=== PATIENT | male | born 1935 | race Caucasian/White ===

== ENCOUNTER 2020-11-11 03:16 | Emergency (ER) | payer MEDICARE ==
[~2020-11-11] VITALS: Ht 170.2 cm; Wt 90.0 kg
--- NOTE | 2020-11-11 03:23 | EKG ---
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
--- NOTE | 2020-11-11 03:23 | PHYS DOC ---
Past History Past Medical History: Asthma, Cancer (Prostate), Hypertension Additional Past Medical Histor: CLL (DEQUAN NUNEZ DO) Past Surgical History: Appendectomy, Pacemaker Additional Past Surgical Histo: Prostate (DEQUAN NUNEZ DO) Smoking: Non-smoker Alcohol Use: None Drug Use: None (DEQUAN NUNEZ DO) General Adult EDM: Chief Complaint: Abdominal pain HPI: HPI: 85-year-old male presents with report of upper abdominal discomfort that started in left upper quadrant and has since moved to epigastrium. Denies any nausea or vomiting. Denies any fever or chills. Reports symptoms started at approxim ately 1999 last night. Denies any diaphoresis. Patient concerned that it might be his heart. (DEQUAN NUNEZ DO) Review of Systems: Review of Systems: Constitutional: Denies fever or chills Eyes: Denies redness or eye pain HENT: Denies nasal congestion or sore throat Respiratory: Denies cough or shortness of breath Cardiovascular: Reports chest pain; denies palpitations GI: Reports abdominal pain; denies nausea or vomiting : Denies dysuria or hematuria Musculoskeletal: Denies back pain or joint pain Integument: Denies rash or skin lesions Neurologic: Denies headache, focal weakness or sensory changes Complete systems were reviewed and found to be within normal limits, except as documented in this note. (DEQUAN NUNEZ DO) Physical Exam: PE: Constitutional: Well developed, well nourished, no acute distress, non-toxic appearance HENT: Normocephalic, atraumatic Eyes: Conjunctiva normal, no discharge Neck: Normal range of motion, no tenderness, supple Lungs & Thorax: No respiratory distress, equal chest rise and fall Abdomen: Soft, left upper quadrant and epigastrium tenderness Skin: Warm, dry, no erythema, no rash Back: No tenderness, no CVA tenderness Extremities: No tenderness, ROM intact, no edema Neurologic: Alert and oriented X 3, normal motor function, normal sensory f unction, no focal deficits noted Psychologic: Affect anxious, judgment normal (DEQUAN NUNEZ DO) EKG: EKG: @0317 Afib at 87bpm, LAFB, NO ST elevation, QRS 82ms, QT/QTc 426/513ms (DEQUAN NUNEZ DO) Radiology/Procedures: Radiology/Procedures: PROCEDURE: CT CHEST ABD PELVIS W/CONTRAST PQRS Compliance Statement: One or more of the following individualized dose reduction techniques were utilized for this examination: 1. Automated exposure control 2. Adjustment of the mA and/or kV according to patient size 3. Use of iterative reconstruction technique CT CHEST+ABD+PELVIS W Clinical Indication: Reason: lower chest and upper abdominal pain Comparison: None. Technique: Helical CT imaging of the chest, abdomen and pelvis is performed after 75 cc of Omnipaque 300 IV contrast. Oral contrast not administered. Findings: The thyroid is symmetric. There is left chest dual-chamber pacer. There are subcentimeter mediastinal lymph nodes. There is a partially calcified 1.6 cm subcarinal lymph node. There is coronary artery disease. Cardiac size is normal, no pericardial effusion. There is no central pulmonary embolus. Calcific aortic valve stenosis. There is no thoracic aortic dissection. The great vessels are normal caliber. There is no pleural effusion. Central airways are patent. There is discoid atelectasis or scarring in the anterior right upper lobe. There are several about 1 cm in size groundglass nodules bilaterally, for example 2 are seen in the right middle lobe, image 48 and 50. There are linear consolidations and nodular opacities in the bilateral basilar lower lobes. There are bilateral inferior partially calcified pleural plaques. There is a 7 mm possible hemangioma in segment 7 of the liver. Tiny cyst or meningioma is seen in segment 4A of the liver. Small hypodensities are seen in t he spleen, nonspecific. There is cholelithiasis. Minimal induration along the gallbladder wall is seen. The pancreas, adrenal glands, and abdominal aorta caliber are normal. There is no hydronephrosis. 7.3 cm partially exophytic cyst of the right kidney does not require follow-up. There is a 1 cm exophytic lesion at the lower pole of the left kidney that is increased in density and is not definitely a cyst. There is ventral hernia mesh. The stomach is unremarkable. There is no dilated small bowel. There is a short segment of the mid transverse colon that is decompressed with wall prominence which may be due to peristalsis. There is no surrounding inflammation. Appendix is not seen, no secondary signs of appendicitis. There are subcentimeter gastrohepatic lymph nodes. No mesenteric adenopathy. Urinary bladder is not well distended accentuating the wall thickness. Prostatectomy. No pelvic free fluid. There is grade 1 anterolisthesis of L4 and L5. There is multilevel vacuum disc phenomenon of the lumbar spine. There is mild right convexity lumbar scoliosis. Thoracic spine alignment is maintained. IMPRESSION: 1. There are nodular and linear opacities in the periphery of the bilateral basilar lower lobes. There are several subcentimeter groundglass nodules sc attered in the upper lungs. Findings are likely infectious/inflammatory including atypical/viral pneumonitis. 2. Cholelithiasis. There is minimal pericholecystic induration. Suggest right upper quadrant ultrasound. 3. There is a small exophytic lesion at the lower pole of the left kidney that is not definitely a cyst. Recommend outpatient renal ultrasound. Electronically signed by: Barrett Bean MD (11/11/2020 4:50 AM) [facility] (DEQUAN NUNEZ DO) Heart Score: HEART Score for Chest Pain: HEART Score for Chest Pain Response (Comments) Value History Slighlty/Non-Suspicious 0 ECG Nonspecific Repolarizatio 1 Age > 65 2 Risk Factors 1 or 2 Risk Factors 1 Troponin < Normal Limit 0 Total 4 Risk Factors: Risk Factors: DM, Current or recent (<one month) smoker, HTN, HLP, family hist ory of CAD, obesity. Risk Scores: Score 0 - 3: 2.5% MACE over next 6 weeks - Discharge Home Score 4 - 6: 20.3% MACE over next 6 weeks - Admit for Clinical Observation Score 7 - 10: 72.7% MACE over next 6 weeks - Early Invasive Strategies (DEQUAN NUNEZ DO) Course & Med Decision Making: Course & Med Decision Making Pertinent Labs and Imaging studies reviewed. (See chart for details) Elderly patient presents with left upper quadrant abdominal pain with movement to epigastrium. IV fluid hydration provided. EKG obtained. Labs obtained and posted to chart. LFTs/lipase WNL. WBC slightly elevated. Troponin WNL. CT abdomen/pelvis obtained with findings of cholelithiasis with possible gall bladder wall thickening. US ordered and pending. CT chest with signs of atypical pneumonitis. Cannot exclude COVID-19, Empiric antibiotics started. Lactic acid pending. Blood cultures ordered. COVID testing will be obtained pending US results. Pacemaker interrogated: Pacemaker appears to be working well. Metronic rep reports on 10/28 & 1/14 there were two small runs of Vtach. Sign out given to Dr. Hernandez for further evaluation and final disposition. Discussed current findings and plan with patient, who acknowledges understanding and agreement. (DEQUAN NUNEZ DO) Course & Med Decision Making Assumed care of patient from Dr. Nunez. At checkout a ultrasound was pending. Ultrasound does not show acute cholecystitis. Patient is feeling significantly better. He will be swabbed for novel coronavirus 19. Patient will be discharged on steroids and was given a report of his CT scan and his pacemaker interrogation. He will call his glass inserter about his interrogation and see when they would like him to follow-up in clinic. Patient will return to the emergency room if pain returns, he develops shortness of breath, he develops palpitations, or he has other concerns. Patient's test results and vitals while in the ED were fully reviewed and discussed with the patient. Patient is stable and at this time does not need admission to the hospital. We have discussed strict return precautions and the importance of following up with their Primary Care Physician. Patient stated understanding and was given an opportunity to ask any questions. Patient is in agreement with plan. (DANISH HERNANDEZ MD) Dragon Disclaimer: Dragon Disclaimer: This electronic medical record was generated, in whole or in part, using a voice recognition dictation system. (DEQUAN NUNEZ DO) Departure Departure: Impression: Primary Impression: Atypical pneumonia Additional Impression: Cholelithiasis Disposition: 01 DC HOME SELF CARE/HOMELESS Condition: STABLE Referrals: PCP,UNKNOWN (PCP) Patient Instructions: Chest Pain (Nonspecific), Pneumonia, Adult Scripts Prednisone (PREDNISONE) 50 Mg Tablet 1 TAB PO DAILY for atypical pneumonia, #5 TAB You received this medication in the emergency room today. You will starting your next dose tomorrow. Prov: DANISH HERNANDEZ MD 11/11/20 Azithromycin (ZITHROMAX) 250 Mg Tablet 1 PKG PO UD for atypical pneumonia, #1 PKG Prov: DANISH HERNANDEZ MD 11/11/20 DEQUAN NUNEZ DO Nov 11, 2020 03:23 DANISH HERNANDEZ MD Nov 11, 2020 08:26
[2020-11-11] MEDS ORDERED: CONTRAST GIVEN. MC PRN (03:45)
[2020-11-11] MEDS ORDERED: IOHEXOL 300 MG/ML 75 ML VIAL. IV ONE (03:45)
[2020-11-11] MEDS ORDERED: FAMOTIDINE 20 MG/2 ML VIAL IVP ONE (03:45)
[2020-11-11] MEDS ORDERED: ASPIRIN 325 MG TABLET PO ONE (03:45)
[2020-11-11 03:57] LABS: BASO % 0 % (0-3); EOS # 0.1 x10^3/uL (0.0-0.7); EOS % 1 % (0-3); HEMATOCRIT 44.7 % (39.0-53.0); HEMOGLOBIN 15.5 g/dL (13.0-17.5); LYMPH # 5.5 x10^3/uL (1.0-4.8); LYMPH % 43 % (24-48); MEAN CORPUSCULAR HEMOGLOBIN 32 pg (25-35); MEAN CORPUSCULAR HGB CONC 35 g/dL (31-37); MEAN CORPUSCULAR VOLUME 94 fL (79-100); MONO # 0.7 x10^3/uL (0.0-1.1); MONO % 6 % (0-9); NEUT # 6.4 x10^3uL (1.8-7.7); NEUT % 50 % (31-73); PLATELET COUNT 194 x10^3/uL (140-400); RED BLOOD COUNT 4.78 x10^6/uL (4.30-5.70); RED CELL DISTRIBUTION WIDTH 14.5 % (11.5-14.5); WHITE BLOOD COUNT 12.8 x10^3/uL (4.0-11.0)
[2020-11-11 04:13] LABS: CALCIUM 8.3 mg/dL (8.5-10.1); CREATININE 1.1 mg/dL (0.7-1.3); GFR 63.9; POTASSIUM 3.6 mmol/L (3.5-5.1)
[2020-11-11 04:26] LABS: ALBUMIN 3.2 g/dL (3.4-5.0); ALBUMIN/GLOBULIN RATIO 1.3 (1.0-1.7); MAGNESIUM 2.1 mg/dL (1.8-2.4); TOTAL BILIRUBIN 0.3 mg/dL (0.2-1.0); TOTAL PROTEIN 5.6 g/dL (6.4-8.2)
--- NOTE | 2020-11-11 04:52 | RAD ---
PQRS Compliance Statement: One or more of the following individualized dose reduction techniques were utilized for this examinat ion: 1. Automated exposure control 2. Adjustment of the mA and/or kV according to patient size 3. Use of iterative reconstruction technique CT CHEST+ABD+PELVIS W Clinical Indication: Reason: lower chest and upper abdominal pain Comparison: None. Technique: Helical CT imaging of the chest, abdomen and pelvis is performed after 75 cc of Omnipaque 300 IV contrast. Oral contrast not administered. Findings: The thyroid is symmetric. There is left chest dual-chamber pacer. There are subcentimeter mediastinal lymph nodes. There is a partially calcified 1.6 cm subcarinal lymph node. There is coronary artery d isease. Cardiac size is normal, no pericardial effusion. There is no central pulmonary embolus. Calci fic aortic valve stenosis. There is no thoracic aortic dissection. The great vessels are normal calib er. There is no pleural effusion. Central airways are patent. There is discoid atelectasis or scarring in the anterior right upper lobe. There are several about 1 cm in size groundglass nodules bilaterally, for example 2 are seen in the right middle lobe, image 48 and 50. There are linear consolidations an d nodular opacities in the bilateral basilar lower lobes. There are bilateral inferior partially calc ified pleural plaques. There is a 7 mm possible hemangioma in segment 7 of the liver. Tiny cyst or meningioma is seen in seg ment 4A of the liver. Small hypodensities are seen in the spleen, nonspecific. There is cholelithiasi s. Minimal induration along the gallbladder wall is seen. The pancreas, adrenal glands, and abdominal aorta caliber are normal. There is no hydronephrosis. 7.3 cm partially exophytic cyst of the right kidney does not require foll ow-up. There is a 1 cm exophytic lesion at the lower pole of the left kidney that is increased in den sity and is not definitely a cyst. There is ventral hernia mesh. The stomach is unremarkable. There is no dilated small bowel. There is a short segment of the mid transverse colon that is decompressed with wall prominence which may be du e to peristalsis. There is no surrounding inflammation. Appendix is not seen, no secondary signs of a ppendicitis. There are subcentimeter gastrohepatic lymph nodes. No mesenteric adenopathy. Urinary bladder is not well distended accentuating the wall thickness. Prostatectomy. No pelvic free fluid. There is grade 1 anterolisthesis of L4 and L5. There is multilevel vacuum disc phenomenon of the lumb ar spine. There is mild right convexity lumbar scoliosis. Thoracic spine alignment is maintained. IMPRESSION: 1. There are nodular and linear opacities in the periphery of the bilateral basilar lower lobes. The re are several subcentimeter groundglass nodules scattered in the upper lungs. Findings are likely in fectious/inflammatory including atypical/viral pneumonitis. 2. Cholelithiasis. There is minimal pericholecystic induration. Suggest right upper quadrant ultraso und. 3. There is a small exophytic lesion at the lower pole of the left kidney that is not definitely a c yst. Recommend outpatient renal ultrasound. Electronically signed by: Barrett Bean MD (11/11/2020 4:50 AM) [facility]
[2020-11-11] MEDS ORDERED: PIPERACILLIN/TAZOBACTAM 4.5 GM in IV NORMAL SALINE 50ML 50 ML IV ONE (05:30)
[2020-11-11] MEDS ORDERED: PIPERACILLIN/TAZOBACTAM 4.5 GM VIAL IV ONE (05:43)
[2020-11-11] MEDS ORDERED: IV NORMAL SALINE 50ML 50 ML ONE (05:43)
[2020-11-11 06:58] VITALS: BP 121/51
--- NOTE | 2020-11-11 08:12 | RAD ---
US ABDOMEN LTD History: Reason: RUQ pain eval for cholecystitis / Spl. Instructions: / History: Comparison: CT November 11, 2020. Technique: Transabdominal ultrasound images are obtained of the right upper quadrant. Findings: Liver is normal in echogenicity. Right hepatic lobe measures 17.5 cm. Portal flow is hepatopedal. Cholelithiasis with gallbladder sludge. No gallbladder wall thickening or pericholecystic fluid. Common bile duct measures 3 mm in diameter. Visualized pancreas not well seen due to overlying bowel gas. The right kidney measures 11.1 x 5.2 x 4.5 cm. No hydronephrosis. Simple right renal cyst measures 7. 5 cm. No follow-up imaging is recommended per consensus recommendations based on imaging criteria. Aorta and IVC not well seen due to overlying bowel gas. IMPRESSION: 1. Cholelithiasis with gallbladder sludge. Electronically signed by: Lobo Lund DO (11/11/2020 8:10 AM) [id number]
[2020-11-11] MEDS ORDERED: PRED50TA PO (08:26)
[2020-11-11] MEDS ORDERED: AZIT250T PO (08:26)
[2020-11-11] MEDS ORDERED: AMOX1TAB58 PO (08:48)
== END 2020-11-11 08:55 | disposition home or self-care (01) ==
LOC: ER 03:16
DX: J18.9 Pneumonia, unspecified organism (principal); K80.20 Calculus of gallbladder without cholecystitis without obstruction; J45.909 Unspecified asthma, uncomplicated; I10 Essential (primary) hypertension; Z20.822 Contact with and (suspected) exposure to COVID-19; Z90.89 Acquired absence of other organs; Z95.0 Presence of cardiac pacemaker
CPT/HCPCS: 36415; 71260; 74177; 76705; 80053; 82553; 83605; 83690; 83735; 83880; 84484; 85025; 85610; 85730; 87040; 93005; 96365; 96375; 99285; C9803; J2543; J3490; Q9967; U0003

== ENCOUNTER 2020-11-19 01:15 | Emergency (ER) | payer MEDICARE ==
[~2020-11-19] VITALS: Ht 170.2 cm; Wt 90.0 kg
[~2020-11-19 01:15] MED LIST: AMOX1TAB58 PO; AZIT250T PO; PRED50TA PO
--- NOTE | 2020-11-19 01:28 | PHYS DOC ---
Past History Past Medical History: Angina, Anxiety, Arthritis, Asthma, CAD, Cancer, Hypertension, Prostatitis Additional Past Medical Histor: CLL,Prostated Cancer- surgery, later radiation Past Surgical History: Appendectomy, Pacemaker Additional Past Surgical Histo: Prostate, pacemaker metronic Smoking: Non-smoker Alcohol Use: None Drug Use: None General Adult HPI: HPI: "..I ve been having this chest pain off and on last few days...but it would not let up tonight...I was here on 11/11.. they said .. I had pneumonia... I did finish my meds today. Or my antibiotics.." Patient is a 85 year old male who presents with above hx and complaints of chest pain. Pain is central. Non-radiating.. Patient states pain is severe at times. Nothing he does makes it better or worse. Patient does have a history of hypertension, asthma,arthritis, prostate cancer, CLL, and conduction dysrhythmia requiring pacemaker placement in 2014. Patient follows at with Dr. Georgette Hurley as a primary. He sees Dr. Arriola cardiology at , and also follows with hematology oncology at . Patient is also followed at [facility] for his CLL. Patient denies any trauma. Patient denies any specific ill contacts. Previous Covid test was negative. Patient has been compliant with his hydrochlorothiazide 25 mg a day and metoprolol 25 mg one half daily and recent course of antibiotics.. He also takes flecainide 50 mg twice daily. Patient is not on any current meds for his CLL and has not required such for some time. Patient denies any previous history of DVTs or pulmonary embolisms. No recent travel. No history immunosuppression. After patient's prostatectomy age 56 eventually had to have radiation because elevated PSA girdle. Hx. on last Metronic interrogation showed runs of V. tach on 10/28 and 10/29. Metronic tonight frequent PVC, short runs VT. Review of Systems: Review of Systems: Constitutional: Denies fever or chills Eyes: Denies change in visual acuity HENT: Denies nasal congestion or sore throat Respiratory: Complains of shortness of breath Cardiovascular: Complains of chest pain GI: Denies abdominal pain, nausea, vomiting, bloody stools or diarrhea : Denies dysuria Musculoskeletal: History of arthritis Integument: Denies rash Neurologic: Denies headache, focal weakness or sensory changes Endocrine: Denies polyuria or polydipsia Lymphatic: Denies swollen glands Psychiatric: History of anxiety Family History: Family History: Noncontributory to presentation Current Medications: Current Meds: See nursing for home meds Allergies: Allergies: Allergies Coded Allergies Type Severity Reaction Last Updated Verified azithromycin Allergy Unknown Rash 11/11/20 Yes Physical Exam: PE: Constitutional: Moderate acute distress, non-toxic appearance. [] HENT: Normocephalic, atraumatic, bilateral external ears normal, oropharynx moist, no oral exudates, nose normal. [] Eyes: PERRLA, EOMI, conjunctiva normal, no discharge. Glasses Neck: Normal range of motion, no tenderness, supple, no stridor. [] Cardiovascular: Irregular heart rate regular rhythm, no murmur, PMI to the left. PVCs per monitor Lungs & Thorax: Bilateral breath sounds equal at apex but some bilateral basilar crackles on auscultation [] Abdomen: Bowel sounds normal, soft, no tenderness, no masses, no pulsatile masses. Obese. Old surgery scars. Radiation tattoo placement Tho pelvic area. Skin: Warm, dry, no erythema, no rash. Poor turgor. Back: No tenderness, no CVA tenderness. [] Extremities: No tenderness, no cyanosis, no clubbing, ROM intact, mild ankle edema. No cording appreciated. Arthritis. Neurologic: Alert and oriented X 3, n moves all extremities on request, and has distal sensory,, no focal deficits noted. [] Psychologic: Affect anxious, judgement normal, mood normal. [] EKG: EKG: My interpretation EKG shows a ventricular rhythm 80 bpm. Is irregular rhythm. Does occasionally have a PVC. There is occasional pacer spike. Left axis. Right bundle branch block. [] Radiology/Procedures: Radiology/Procedures: Reviewed CT on 11/11= Basilar atypical nodules, pneumonitis, gallstones, [][address] [address] IMAGING REPORT Signed PATIENT: GABRIELA QUIROZ LACCOUNT: [id number] : 1935 LOCATION: ER AGE: 85 SEX: M EXAM STATUS: REG ER ORD. PHYSICIAN: YOUNG COFFEY MD REASON: Chest pain PROCEDURE: PORTABLE CHEST 1V AP chest x-ray HISTORY: Chest pain. COMPARISON: CT chest November 11, 2020. FINDINGS: Dual-chamber cardiac pacemaker. Heart size normal. Mediastinal silhouette is normal. Small nodular density at the left lateral lung base corresponding to a 6 mm pulmonary nodule on prior CT imaging. No pneumothorax. No pleural effusions. Bibasilar interstitial infiltrates mildly decreased since the prior CT study. IMPRESSION: Mild improvement of the basilar pulmonary interstitial infiltrates. 6 mm inferior lingula pulmonary nodule again demonstrated as was present on the prior CT study. Attention on follow-up CT imaging in 6 months is advised. Electronically signed by: Anju Roberson MD (11/19/2020 2:27 AM) [facility] DICTATED AND SIGNED BY: ANJU ROBERSON MD DATE: 11/19/20 0225 CC: YOUNG COFFEY MD; PCP,UNKNOWN ~MTH0 0 Heart Score: HEART Score for Chest Pain: HEART Score for Chest Pain Response (Comments) Value History Moderately Suspicious 1 ECG Nonspecific Repolarizatio 1 Age > 65 2 Risk Factors 1 or 2 Risk Factors 1 Troponin < Normal Limit 0 Total 5 Risk Factors: Risk Factors: DM, Current or recent (<one month) smoker, HTN, HLP, family history of CAD, obesity. Risk Scores: Score 0 - 3: 2.5% MACE over next 6 weeks - Discharge Home Score 4 - 6: 20.3% MACE over next 6 weeks - Admit for Clinical Observation Score 7 - 10: 72.7% MACE over next 6 weeks - Early Invasive Strategies Course & Med Decision Making: Course & Med Decision Making Pertinent Labs and Imaging studies reviewed. (See chart for details) Discussed presentation, testing and treatment plan with transfer at patient's request at 0430 hrs. Pt. accepted in transfer to - Dr Magana . Advised no anticoagulation at this time. 0500 hs. Impression: 1. Chest pain 2. Elevated D-dimer 1.59 3. Elevated CRP 17.8 4. CHF-BNP 1685-diastolic dysfunction 5. History of atypical pneumonia 127 recent completed course of antibiotics 6. History of CLL 7. Leukocytosis 19.8 8. Malnutrition albumin 2.8 9.. History of prostate cancer-(status post prostatectomy/and radiation) 10. Dysrhythmia [] Dragon Disclaimer: Dragon Disclaimer: This electronic medical record was generated, in whole or in part, using a voice recognition dictation system. Departure Departure: Referrals: PCP,UNKNOWN (PCP) Evens Disclaimer This chart was dictated in whole or in part using Voice Recognition software in a busy, high-work load, and often noisy Emergency Department environment. It may contain unintended and wholly unrecognized errors or omissions. Dragon Disclaimer This chart was dictated in whole or in part using Voice Recognition software in a busy, high-work load, and often noisy Emergency Department environment. It may contain unintended and wholly unrecognized errors or omissions. YOUNG COFFEY MD Nov 19, 2020 01:28
[2020-11-19] MEDS ORDERED: ASPIRIN CHEWABLE 81 MG TABLET. PO ONE (01:45)
[2020-11-19] MEDS ORDERED: IV RINGERS SOLUTION,LACTATED 1,000 ML IV SCH (01:45)
--- NOTE | 2020-11-19 01:53 | EKG ---
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
[2020-11-19] MEDS ORDERED: NITROGLYCERIN OINT 1 GM PACKET. ONE (02:03)
[2020-11-19] MEDS ORDERED: NITROGLYCERIN OINT 1 GM PACKET. TP ONE (02:15)
[2020-11-19] MEDS ORDERED: MORPHINE SULFATE 2 MG/ML DISP.SYRIN. IV ONE ×4 (02:15→06:00)
[2020-11-19 02:19] LABS: BASO # 0.2 x10^3/uL (0.0-0.2); BASO % 1 % (0-3); EOS # 0.1 x10^3/uL (0.0-0.7); EOS % 1 % (0-3); HEMATOCRIT 42.9 % (39.0-53.0); HEMOGLOBIN 14.6 g/dL (13.0-17.5); LYMPH # 8.6 x10^3/uL (1.0-4.8); LYMPH % 45 % (24-48); MEAN CORPUSCULAR HEMOGLOBIN 32 pg (25-35); MEAN CORPUSCULAR HGB CONC 34 g/dL (31-37); MEAN CORPUSCULAR VOLUME 95 fL (79-100); MONO # 1.2 x10^3/uL (0.0-1.1); MONO % 6 % (0-9); NEUT # 8.9 x10^3uL (1.8-7.7); NEUT % 47 % (31-73); PLATELET COUNT 222 x10^3/uL (140-400); RED BLOOD COUNT 4.52 x10^6/uL (4.30-5.70); RED CELL DISTRIBUTION WIDTH 14.2 % (11.5-14.5)
[2020-11-19 02:28] LABS: CALCIUM 8.1 mg/dL (8.5-10.1); CREATININE 1.5 mg/dL (0.7-1.3); GFR 44.7; POTASSIUM 3.4 mmol/L (3.5-5.1)
--- NOTE | 2020-11-19 02:30 | RAD ---
AP chest x-ray HISTORY: Chest pain. COMPARISON: CT chest November 11, 2020. FINDINGS: Dual-chamber cardiac pacemaker. Heart size normal. Mediastinal silhouette is normal. Small nodular density at the left lateral lung base corresponding to a 6 mm pulmonary nodule on prior CT im aging. No pneumothorax. No pleural effusions. Bibasilar interstitial infiltrates mildly decreased sin ce the prior CT study. IMPRESSION: Mild improvement of the basilar pulmonary interstitial infiltrates. 6 mm inferior lingula pulmonary nodule again demonstrated as was present on the prior CT study. Attention on follow-up CT imaging in 6 months is advised. Electronically signed by: Marco Roberson MD (11/19/2020 2:27 AM) [facility]
[2020-11-19 02:44] LABS: % BANDS 1 % (0-9); % LYMPHS 31 % (24-48); % MONOS 7 % (0-10); % SEGS 61 % (35-66); ALBUMIN 2.8 g/dL (3.4-5.0); C REACTIVE PROTEIN 17.8 mg/L (0-3.3); DIRECT BILIRUBIN 0.1 mg/dL (0.0-0.2); MAGNESIUM 1.9 mg/dL (1.8-2.4); PLT ESTIMATE ADEQUATE (ADEQUATE); TOTAL BILIRUBIN 0.4 mg/dL (0.2-1.0); TOTAL PROTEIN 5.8 g/dL (6.4-8.2)
[2020-11-19] MEDS ORDERED: MORPHINE SULFATE 4 MG/ML DISP.SYRIN. IV ONE (02:45)
[2020-11-19] MEDS ORDERED: cefTRIAXone SODIUM 1 GM VIAL ONE (04:54)
[2020-11-19] MEDS ORDERED: IV NORMAL SALINE 50ML 50 ML ONE (04:54)
[2020-11-19 05:35] VITALS: BP 119/57
[2020-11-19 07:20] LABS: BILIRUBIN,URINE NEG (NEG); CLARITY,URINE CLEAR; COLOR,URINE YELLOW; GLUCOSE,URINE NEG (NEG)
[2020-11-19 07:21] LABS: NITRITE,URINE NEG (NEG); RBC,URINE OCC /HPF (0-2); SQUAMOUS EPITHELIAL CELL,UR FEW /LPF; UROBILINOGEN,URINE 0.2 mg/dL (0.2 mg/dL); YEAST,URINE PRESENT /HPF
[2020-11-19 07:22] LABS: BACTERIA,URINE 0 /HPF (0-FEW)
[2020-11-19] MEDS ORDERED: APIXABAN 2.5 MG TABLET PO SCH (09:00)
== END 2020-11-19 05:45 | disposition short-term general hospital (02) ==
LOC: ER 01:15
DX: R07.89 Other chest pain (principal); I11.0 Hypertensive heart disease with heart failure; I50.30 Unspecified diastolic (congestive) heart failure; R79.82 Elevated C-reactive protein (CRP); R79.89 Other specified abnormal findings of blood chemistry; Z87.01 Personal history of pneumonia (recurrent); D72.829 Elevated white blood cell count, unspecified; E46 Unspecified protein-calorie malnutrition; Z68.1 Body mass index [BMI] 19.9 or less, adult; Z85.46 Personal history of malignant neoplasm of prostate; I49.9 Cardiac arrhythmia, unspecified; Z85.6 Personal history of leukemia; Z90.89 Acquired absence of other organs; Z95.0 Presence of cardiac pacemaker; Z88.1 Allergy status to other antibiotic agents
CPT/HCPCS: 36415; 71045; 80048; 80076; 81001; 82550; 83690; 83735; 83880; 84443; 84484; 85007; 85025; 85379; 85610; 85730; 86140; 87040; 93005; 96361; 96365; 96375; 96376; 99285; J0696; J2060; J2270; J7120

== ENCOUNTER 2021-08-11 13:56 | Inpatient (IN) | payer MEDICARE ==
[~2021-08-11] VITALS: Ht 170.2 cm; Wt 95.1 kg
[2021-08-11] MEDS ORDERED: ONDANSETRON PF 4 MG/2 ML VIAL. ONE (14:14)
[2021-08-11] MEDS ORDERED: NITROGLYCERIN SUBLINGUAL 0.4 MG BOTTLE OF 25. SL PRN (14:15)
[2021-08-11] MEDS ORDERED: ASPIRIN CHEWABLE 81 MG TABLET. PO ONE (14:15)
--- NOTE | 2021-08-11 14:22 | EKG ---
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
[2021-08-11] MEDS ORDERED: LIDO:MAALOX 1:1 20 ML SINGLE DOSE. PO ONE (14:30)
[2021-08-11] MEDS ORDERED: IOHEXOL 350 MG/ML 100 ML VIAL. IV ONE (14:45)
[2021-08-11 14:48] LABS: BASO # 0.1 x10^3/uL (0.0-0.2); BASO % 1 % (0-3); EOS # 0.1 x10^3/uL (0.0-0.7); EOS % 1 % (0-3); HEMATOCRIT 48.4 % (39.0-53.0); HEMOGLOBIN 16.5 g/dL (13.0-17.5); LYMPH # 7.2 x10^3/uL (1.0-4.8); LYMPH % 47 % (24-48); MEAN CORPUSCULAR HEMOGLOBIN 32 pg (25-35); MEAN CORPUSCULAR HGB CONC 34 g/dL (31-37); MEAN CORPUSCULAR VOLUME 94 fL (79-100); MONO # 1.2 x10^3/uL (0.0-1.1); MONO % 8 % (0-9); NEUT # 6.7 x10^3uL (1.8-7.7); NEUT % 44 % (31-73); PLATELET COUNT 220 x10^3/uL (140-400); RED BLOOD COUNT 5.16 x10^6/uL (4.30-5.70); WHITE BLOOD COUNT 15.3 x10^3/uL (4.0-11.0)
--- NOTE | 2021-08-11 14:48 | EKG ---
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
[2021-08-11] MEDS ORDERED: MORPHINE SULFATE 2 MG/ML DISP.SYRIN. IV ONE (15:30)
[2021-08-11 15:41] LABS: % BANDS 5 % (0-9); % EOS 1 % (0-5); % LYMPHS 31 % (24-48); % MONOS 3 % (0-10); % SEGS 60 % (35-66); PLT ESTIMATE ADEQUATE (ADEQUATE)
--- NOTE | 2021-08-11 16:12 | RAD ---
EXAM: CT angiography of the chest with intravenous contrast. HISTORY: Chest pain. TECHNIQUE: Computed tomographic images of the chest were obtained following the administration of int ravenous contrast according to angiography protocol. Multiplanar reformatting was performed and three dimensional maximum intensity projection images were obtained. *One or more of the following individualized dose reduction techniques were utilized for this examina tion: 1. Automated exposure control. 2. Adjustment of the mA and/or kV according to patient size. 3. Use of iterative reconstruction technique. COMPARISON: None. FINDINGS: There is no convincing pulmonary embolism. Evaluation of the distal pulmonary arteries is l imited due to adjacent infiltrate and respiratory motion. There is mild cardiomegaly. There is a left chest wall cardiac pacemaker with leads in expected position. There is calcified atherosclerotic nazario que involving the coronary arteries, aorta and aortic great vessels. There is calcification of the ao rtic valve. There are multiple prominent mediastinal and hilar lymph nodes, some which are calcified or partially calcified and consistent with healed granulomatous disease. There is no pleural effusion or pneumoth orax. There is multifocal mid and lower lung predominant interstitial infiltrate with partial left lo wer lobe consolidation. There are scattered bilateral pulmonary nodules likely due to aforementioned infiltrate, the largest of which measure 8 mm within the anterior left upper lobe and lateral right m iddle lobe. There is mild splenomegaly. This may be within normal limits for patient body habitus. There is parti al visualization of a simple appearing cyst within the upper pole of the right kidney measuring 3.4 c m on the [id number]-ti-eshv. There is peripancreatic stranding, partially included on the snqbc-au-qkki. T here are enlarged periportal lymph nodes which may be reactive in etiology. There is no acute osseous finding. There is degenerative change throughout the spine. There is a dense sclerotic lesion within the right lateral aspect of T2, the appearance of which favors a bone island. IMPRESSION: 1. No convincing pulmonary embolism. Evaluation of the distal pulmonary arteries is limited due to pa tient infiltrate and respiratory motion. 2. Multifocal mid and lower lung predominant interstitial infiltrate with partial left lower lobe con solidation. There are multiple superimposed subcentimeter nodular opacities which are likely infectio us in etiology. Short-term follow-up in 3 months is recommended to confirm resolution an exclude a pe rsistent underlying nodule. 3. Mild mediastinal and hilar lymphadenopathy, likely reactive in etiology. Attention at the time of follow-up is recommended. 4. Peripancreatic fatty stranding. This is not completely included on the nggrc-[id number]-[id number]. Correlate fo r possible acute pancreatitis. 5. Simple appearing cyst within the upper pole the right kidney, partially included on the field-of-v iew. Follow-up is not routinely performed for simple cysts. 6. Coronary artery atherosclerosis, cardiomegaly and calcification of the aortic valve. Electronically signed by: Brandi Haq MD (08/11/2021 4:09 PM) [id number]
[2021-08-11 16:27] LABS: ALBUMIN 3.6 g/dL (3.4-5.0); ALBUMIN/GLOBULIN RATIO 1.3 (1.0-1.7); CALCIUM 9.4 mg/dL (8.5-10.1); CREATININE 1.4 mg/dL (0.7-1.3); GFR 48.4; POTASSIUM 4.3 mmol/L (3.5-5.1); TOTAL BILIRUBIN 1.8 mg/dL (0.2-1.0); TOTAL PROTEIN 6.3 g/dL (6.4-8.2)
[2021-08-11] MEDS ORDERED: MORPHINE SULFATE 4 MG/ML DISP.SYRIN. IV ONE (18:15)
[2021-08-11] MEDS ORDERED: IV NORMAL SALINE 1,000ML 1,000 ML IV ONE (18:15)
--- NOTE | 2021-08-11 18:37 | PHYS DOC ---
Past History Past Medical History: Angina, Anxiety, Arthritis, Asthma, CAD, Cancer, Hypertension, Prostatitis Additional Past Medical Histor: CLL,Prostated Cancer- surgery, later radiation (ANIL KAUR APRN) Past Surgical History: Appendectomy, Pacemaker Additional Past Surgical Histo: Prostate, pacemaker metronic (ANIL KAUR APRN) Smoking: Non-smoker Alcohol Use: None Drug Use: None (ANIL KAUR APRN) General Adult EDM: Chief Complaint: CHEST PAIN HPI: HPI: Patient is an 85-year-old male who presents to the emergency department for generalized mid chest pain that started this morning. Patient rates a 8 out of 10. He is unable to describe the pain. It does not radiate. Patient reports shortness of breath with his pain. He has a history of hypertension, CAD, asthma, CLL, pacemaker placement. His primary care provider is Dr. Celaya at [facility]. Patient reports that 2 months ago he had cholecystectomy and a colon resection. Patient denies nausea, vomiting, dizziness, cough, fever. (ANIL KAUR APRN) Review of Systems: Review of Systems: 14 body systems of the review of systems have been reviewed. See HPI for pertinent positive and negative responses, otherwise all other systems are negative, nonpertinent or noncontributory (ANIL KAUR APRN) Current Medications: Current Meds: Current Medications Medications (Trade) Dose Ordered Sig/[facility] Start Time Stop Time Status Last Admin Dose Admin Aspirin (Aspirin Chewable) 324 mg 1X ONCE 08/11/21 14:15 08/11/21 14:20 DC 08/11/21 14:26 324 MG Fentanyl Citrate (Fentanyl 2ml Vial) 50 mcg 1X ONCE 08/11/21 14:15 08/11/21 14:20 DC 08/11/21 14:23 50 MCG Iohexol (Omnipaque 350 Mg/ml) 100 ml 1X ONCE 08/11/21 14:45 08/11/21 14:46 DC 08/11/21 15:49 100 ML Levofloxacin/ Dextrose 150 ml @ 100 mls/hr 1X ONCE 08/11/21 18:15 08/11/21 19:44 08/11/21 18:19 100 MLS/HR Morphine Sulfate (Morphine 2mg Syringe) 2 mg 1X ONCE 08/11/21 15:30 08/11/21 15:40 DC 08/11/21 15:44 2 MG Morphine Sulfate (Morphine 4mg Syringe) 4 mg 1X ONCE 08/11/21 18:15 08/11/21 18:16 DC 08/11/21 18:18 4 MG Multi-Ingredient Mouthwash/Gargle (Gi Cocktail) 20 ml 1X ONCE 08/11/21 14:30 08/11/21 14:40 DC 08/11/21 14:31 20 ML Nitroglycerin (Nitrostat) 0.4 mg PRN Q5MIN PRN 08/11/21 14:15 08/12/21 14:14 08/11/21 14:23 0.4 MG Ondansetron HCl (Zofran) 4 mg STK-MED ONCE 08/11/21 14:14 08/11/21 14:15 DC Sodium Chloride 1,000 ml @ 1,000 mls/hr 1X ONCE 08/11/21 18:15 08/11/21 19:14 08/11/21 18:19 1,000 MLS/HR (ANIL KAUR APRN) Allergies: Allergies: Allergies Coded Allergies Type Severity Reaction Last Updated Verified azithromycin Allergy Unknown Rash 11/11/20 Yes (ANIL KAUR APRN) Physical Exam: PE: Constitutional: Well developed, well nourished, no acute distress, non-toxic appearance. [] HENT: Normocephalic, atraumatic, bilateral external ears normal, oropharynx moist, no oral exudates, nose normal. [] Eyes: PERRL, EOMI, conjunctiva normal, no discharge. [] Neck: Normal range of motion, no stridor Cardiovascular:Heart rate regular rhythm, no murmur [] Lungs & Thorax: Bilateral breath sounds clear to auscultation [] Abdomen: Bowel sounds normal, soft, no tenderness, no masses, no pulsatile zoie s postsurgical scarring without any signs of infection. [] Skin: Warm, dry, no erythema, no rash. [] Back: No tenderness, normal range of motion Extremities: No tenderness, no cyanosis, no clubbing, ROM intact, no edema. [] Neurologic: Alert and oriented X 3, normal motor function, normal sensory function, no focal deficits noted. [] Psychologic: Affect normal, judgement normal, mood normal. [] (NATASHA,ANIL L CONSULTING NETWORKING ENGINEER) Current Patient Data: Labs: Laboratory Tests Test 08/11/21 14:17 08/11/21 15:29 White Blood Count 15.3 x10^3/uL (4.0-11.0) H Red Blood Count 5.16 x10^6/uL (4.30-5.70) Hemoglobin 16.5 g/dL (13.0-17.5) Hematocrit 48.4 % (39.0-53.0) Mean Corpuscular Volume 94 fL (79-100) Mean Corpuscular Hemoglobin 32 pg (25-35) Mean Corpuscular Hemoglobin Concent 34 g/dL (31-37) Red Cell Distribution Width 15.0 % (11.5-14.5) H Platelet Count 220 x10^3/uL (140-400) Neutrophils (%) (Auto) 44 % (31-73) Lymphocytes (%) (Auto) 47 % (24-48) Monocytes (%) (Auto) 8 % (0-9) Eosinophils (%) (Auto) 1 % (0-3) Basophils (%) (Auto) 1 % (0-3) Neutrophils # (Auto) 6.7 x10^3uL (1.8-7.7) Lymphocytes # (Auto) 7.2 x10^3/uL (1.0-4.8) H Monocytes # (Auto) 1.2 x10^3/uL (0.0-1.1) H Eosinophils # (Auto) 0.1 x10^3/uL (0.0-0.7) Basophils # (Auto) 0.1 x10^3/uL (0.0-0.2) Segmented Neutrophils % 60 % (35-66) Band Neutrophils % 5 % (0-9) Lymphocytes % 31 % (24-48) Monocytes % 3 % (0-10) Eosinophils % 1 % (0-5) Platelet Estimate Adequate (ADEQUATE) Troponin I Quantitative < 0.017 ng/mL (0-0.055) Sodium Level 140 mmol/L (136-145) Potassium Level 4.3 mmol/L (3.5-5.1) Chloride Level 105 mmol/L (98-107) Carbon Dioxide Level 25 mmol/L (21-32) Anion Gap 10 (6-14) Blood Urea Nitrogen 24 mg/dL (8-26) Creatinine 1.4 mg/dL (0.7-1.3) H Estimated GFR (Cockcroft-Gault) 48.4 BUN/Creatinine Ratio 17 (6-20) Glucose Level 192 mg/dL (70-99) H Calcium Level 9.4 mg/dL (8.5-10.1) Total Bilirubin 1.8 mg/dL (0.2-1.0) H Aspartate Amino Transferase (AST) 731 U/L (15-37) H Alanine Aminotransferase (ALT) 559 U/L (16-63) H Alkaline Phosphatase 144 U/L (46-116) H Total Protein 6.3 g/dL (6.4-8.2) L Albumin 3.6 g/dL (3.4-5.0) Albumin/Globulin Ratio 1.3 (1.0-1.7) Lipase 83877 U/L (73-393) H Vital Signs: Vital Signs Date Time Temp Pulse Resp B/P (MAP) Pulse Ox O2 Delivery O2 Flow Rate FiO2 08/11/21 14:23 90 148/85 (ANIL KAUR APRN) EKG: EKG: EKG performed by ER staff at 1359 shows sinus rhythm with PACs with a heart rate of 95 [] no STEMI read by Dr. Noyola 1405 repeat EKG performed by ER staff at 1437 shows sinus rhythm with a rate of 75 no STEMI read by Dr. Noyola at 1442 (ANIL KAUR APRN) Radiology/Procedures: Radiology/Procedures: []PROCEDURE: CT ANGIOGRAPHY CHEST EXAM: CT angiography of the chest with intravenous contrast. HISTORY: Chest pain. TECHNIQUE: Computed tomographic images of the chest were obtained following the administration of intravenous contrast according to angiography protocol. Multiplanar reformatting was performed and three dimensional maximum intensity projection images were obtained. *One or more of the following individualized dose reduction techniques were utilized for this examination: 1. Automated exposure control. 2. Adjustment of the mA and/or kV according to patient size. 3. Use of iterative reconstruction technique. COMPARISON: None. FINDINGS: There is no convincing pulmonary embolism. Evaluation of the distal pulmonary arteries is limited due to adjacent infiltrate and respiratory motion. There is mild cardiomegaly. There is a left chest wall cardiac pacemaker with leads in expected position. There is calcified atherosclerotic plaque involving the coronary arteries, aorta and aortic great vessels. There is calcification of the aortic valve. There are multiple prominent mediastinal and hilar lymph nodes, some which are calcified or partially calcified and consistent with healed granulomatous disease. There is no pleural effusion or pneumothorax. There is multifocal mid a nd lower lung predominant interstitial infiltrate with partial left lower lobe consolidation. There are scattered bilateral pulmonary nodules likely due to aforementioned infiltrate, the largest of which measure 8 mm within the anterior left upper lobe and lateral right middle lobe. There is mild splenomegaly. This may be within normal limits for patient body habitus. There is partial visualization of a simple appearing cyst within the upper pole of the right kidney measuring 3.4 cm on the kpizr-bw-reyo. There is peripancreatic stranding, partially included on the anxow-fd-sesw. There are enlarged periportal lymph nodes which may be reactive in etiology. There is no acute osseous finding. There is degenerative change throughout the spine. There is a dense sclerotic lesion within the right lateral aspect of T2, the appearance of which favors a bone island. IMPRESSION: 1. No convincing pulmonary embolism. Evaluation of the distal pulmonary arteries is limited due to patient infiltrate and respiratory motion. 2. Multifocal mid and lower lung predominant interstitial infiltrate with partial left lower lobe consolidation. There are multiple superimposed subcentimeter nodular opacities which are likely infectious in etiology. Short- term follow-up in 3 months is recommended to confirm resolution an exclude a persistent underlying nodule. 3. Mild mediastinal and hilar lymphadenopathy, likely reactive in etiology. Attention at the time of follow-up is recommended. 4. Peripancreatic fatty stranding. This is not completely included on the mysed-ij-mebq. Correlate for possible acute pancreatitis. 5. Simple appearing cyst within the upper pole the right kidney, partially included on the lfvok-es-dfxt. Follow-up is not routinely performed for simple cysts. 6. Coronary artery atherosclerosis, cardiomegaly and calcification of the aortic valve. Electronically signed by: Brandi Dominguez MD (08/11/2021 4:09 PM) [id number] DICTATED AND SIGNED BY: BRANDI DOMINGUEZ MD DATE: 08/11/21 1601 CC: ANIL KAUR APRN; ASHLEY CASTELLON MD ~MTH0 0 PROCEDURE: CT ABD PELV W/ IV CONTRST ONLY EXAM: CT Abdomen and Pelvis with IV contrast CLINICAL HISTORY: Reason: pancreatitis, abdomen pain Omni 300 60cc / Spl. Instructions: / History: . COMPARISON: CT 11/11/2020 TECHNIQUE: Helical CT of the abdomen and pelvis was performed following the administration of intravenous contrast. Axial, coronal and sagittal reformatted images were generated. PQRS compliance statement - One or more of the following individualized dose reduction techniques were utilized for this study: 1. Automated exposure control 2. Adjustment of the mA and/or kV according to patient size 3. Use of iterative reconstruction technique FINDINGS: Lower Chest: Multifocal bibasilar airspace opacities with reticulonodular interstitial markings better appreciated on dedicated chest CT from earlier same day. Abdomen and Pelvis: There is normal in size and morphology. There is a subcentimeter hypoattenuating focus in the left hepatic lobe, too small to characterize, favoring simple hepatic cyst. Spleen is enlarged measuring 13 symmetric in maximal AP diameter with no focal abnormality. Gallbladder is absent. No pathologic biliary ductal dilation. Adrenal glands are normal. Kidneys appear atrophic with 7.5 cm water attenuating cyst in the interpolar region of the right kidney smaller subcentimeter hypoattenuating cyst or pole the left kidney, too small to characterize. No nephrolithiasis or hydroureteronephrosis. The pancreas is e dematous with peripancreatic fat stranding most pronounced at the head/uncinate. There is likely reactive inflammatory changes of the corresponding segments of the duodenum. There are multiple enlarged peripancreatic and blaise hepatis lymph nodes measuring up to 2.6 cm in long axis, these are likely reactive. Stomach is unremarkable. No evidence of pathologic process within the small and large bowel. Appendix is not definitely visualized. No free intra-abdominal air or free fluid. Mild to moderate aortobiiliac atherosclerotic disease. Moderate amount of stool in the rectum. Urinary bladder is partially filled with contrast from prior exam. Bones: No acute or suspicious osseous abnormalities Small fat-containing periumbilical hernia. Abdominal wall is otherwise unremarkable. IMPRESSION: 1. Findings consistent with acute uncomplicated pancreatitis. Likely reactive inflammatory changes of the corresponding segments of the duodenum. 3. Likely reactive peripancreatic/blaise hepatis adenopathy. 3. Redemonstrated multifocal lower lung interstitial infiltrates and partial left lower lobe consolidation. Better appreciated on earlier same day CT. 4. Other chronic/incidental findings, as above. Electronically signed by: Morris Brumfield DO (08/11/2021 7:28 PM) [facility] DICTATED AND SIGNED BY: MORRIS BRUMFIELD DO DATE: 08/11/211909 CC: ANIL KAUR APRN; ASHLEY CASTELLON MD ~MTH0 0 (ANIL KAUR APRN) Heart Score: C/O Chest Pain: Yes HEART Score for Chest Pain: HEART Score for Chest Pain Response (Comments) Value History Moderately Suspicious 1 ECG Nonspecific Repolarizatio (bigeminy) 1 Age > 65 2 Risk Factors >3 Risk Factors or Hx CAD (htn, cad, obesity) 2 Troponin < Normal Limit 0 Total 6 Risk Factors: Risk Factors: DM, Current or recent (<one month) smoker, HTN, HLP, family history of CAD, obesity. Risk Scores: Score 0 - 3: 2.5% MACE over next 6 weeks - Discharge Home Score 4 - 6: 20.3% MACE over next 6 weeks - Admit for Clinical Observation Score 7 - 10: 72.7% MACE over next 6 weeks - Early Invasive Strategies (ANIL KAUR APRN) Course & Med Decision Making: Course & Med Decision Making Pertinent Labs and Imaging studies reviewed. (See chart for details) Patient presents to the emergency department for midsternal chest pain that sta rted this morning. Patient has a history of a pacemaker. Also has a history of hypertension, CAD, CLL. His primary care provider is Dr. Celaya at [facility]. Work-up in the ER consisted of blood work, CTA of chest. Patient's pain treated in the emergency department. Patient was noted to have leukocytosis with a white blood cell count of 15.3. AST 731, ALT 559, negative troponin, lipase 34,900. CTA showed multifocal mid and lower lung infiltrates and pancreatic fat stranding at the visual lysed portion of the pancreas. Patient kept n.p.o. Patient treated with antibiotics to treat the pneumonia. Patient's pacemaker interrogated and it shows 0 paced terminated episodes. Also shows 1 episode of fast a and V that lasted 25 seconds at the longest since July 222020. I discussed findings with patient and attempted to get patient transferred to [facility] but they were full and unable able to accept him as a patient. I discussed this with patient and advised him to be transferred to [facility] which he declined stating that he would like to be held in the emergency department until a bed opens up at [facility] and be admitted there. I discussed patient's findings with Dr. Telles. A CT of patient's abdomen was performed in the emergency department. This showed acute uncomplicated pancreatitis. Patient treated with IV fluids. Bridge orders placed patient admitted, care transferred at this time 1830. 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 Cardiology consult placed. I discussed patients case with Dr. Forrest as it is shift change. 2201. (ANIL KAUR APRN) Dragon Disclaimer: Dragon Disclaimer: This electronic medical record was generated, in whole or in part, using a voice recognition dictation system. (ANIL KAUR APRN) Departure Departure: Impression: Primary Impression: Pancreatitis Qualified Codes: K85.90 - Acute pancreatitis without necrosis or infection, unspecified Disposition: ADMITTED INPATIENT Admitting Physician: Marquita Telles (ANIL KAUR APRN) Condition: STABLE Referrals: ASHLEY CASTELLON MD (PCP) Attending Signature Attending Signature I have participated in the care of this patient and I have reviewed and agree with all pertinent clinical information above including history, exam, and recommendations. (YOUNG FORREST MD) ANIL KAUR APRN Aug 11, 2021 18:37 YOUNG FORREST MD Aug 12, 2021 19:00
[2021-08-11] MEDS ORDERED: IOHEXOL 300 MG/ML 75 ML VIAL. IV ONE (18:45)
[2021-08-11] MEDS ORDERED: HYDROmorphone PF 1 MG/ML DISP.SYRIN IVP ONE ×2 (19:15→21:45)
--- NOTE | 2021-08-11 19:30 | RAD ---
EXAM: CT Abdomen and Pelvis with IV contrast CLINICAL HISTORY: Reason: pancreatitis, abdomen pain Omni 300 60cc / Spl. Instructions: / History: . COMPARISON: CT 11/11/2020 TECHNIQUE: Helical CT of the abdomen and pelvis was performed following the administration of intrave nous contrast. Axial, coronal and sagittal reformatted images were generated. PQRS compliance statement - One or more of the following individualized dose reduction techniques wer e utilized for this study: 1. Automated exposure control 2. Adjustment of the mA and/or kV according to patient size 3. Use of iterative reconstruction technique FINDINGS: Lower Chest: Multifocal bibasilar airspace opacities with reticulonodular interstitial markings better appreciated on dedicated chest CT from earlier same day. Abdomen and Pelvis: There is normal in size and morphology. There is a subcentimeter hypoattenuating focus in the left he patic lobe, too small to characterize, favoring simple hepatic cyst. Spleen is enlarged measuring 13 symmetric in maximal AP diameter with no focal abnormality. Gallbladder is absent. No pathologic bili toña ductal dilation. Adrenal glands are normal. Kidneys appear atrophic with 7.5 cm water attenuating cyst in the interpolar region of the right kidney smaller subcentimeter hypoattenuating cyst or pole the left kidney, too small to characterize. No nephrolithiasis or hydroureteronephrosis. The pancrea s is edematous with peripancreatic fat stranding most pronounced at the head/uncinate. There is likel y reactive inflammatory changes of the corresponding segments of the duodenum. There are multiple enl arged peripancreatic and blaise hepatis lymph nodes measuring up to 2.6 cm in long axis, these are lik anil reactive. Stomach is unremarkable. No evidence of pathologic process within the small and large bowel. Appendix is not definitely visualized. No free intra-abdominal air or free fluid. Mild to moderate aortobiili ac atherosclerotic disease. Moderate amount of stool in the rectum. Urinary bladder is partially filled with contrast from prior exam. Bones: No acute or suspicious osseous abnormalities Small fat-containing periumbilical hernia. Abdominal wall is otherwise unremarkable. IMPRESSION: 1. Findings consistent with acute uncomplicated pancreatitis. Likely reactive inflammatory changes of the corresponding segments of the duodenum. 3. Likely reactive peripancreatic/blaise hepatis adenopathy. 3. Redemonstrated multifocal lower lung interstitial infiltrates and partial left lower lobe consolid ation. Better appreciated on earlier same day CT. 4. Other chronic/incidental findings, as above. Electronically signed by: Sy Brumfield DO (08/11/2021 7:28 PM) [facility]
[2021-08-12] MEDS ORDERED: FURO-69 PO (00:11)
[2021-08-12] MEDS ORDERED: ZOLP5TAB PO (00:11)
[2021-08-12] MEDS ORDERED: FLEC100T PO ×2 (00:11→14:49)
[2021-08-12] MEDS ORDERED: ONDANSETRON PF 4 MG/2 ML VIAL. ONE (00:26)
[2021-08-12] MEDS ORDERED: ONDANSETRON PF 4 MG/2 ML VIAL. IVP ONE (01:00)
[2021-08-12] MEDS: HYDROmorphone PF 1 MG/ML DISP.SYRIN IV/SQ PRN ×3 (02:09→11:06)
[2021-08-12] MEDS ORDERED: ONDANSETRON PF 4 MG/2 ML VIAL. IVP PRN ×2 (07:00→16:15)
[2021-08-12 09:18] LABS: BASO # 0.1 x10^3/uL (0.0-0.2); BASO % 0 % (0-3); EOS % 0 % (0-3); LYMPH # 4.6 x10^3/uL (1.0-4.8); LYMPH % 32 % (24-48); MEAN CORPUSCULAR HEMOGLOBIN 32 pg (25-35); MEAN CORPUSCULAR HGB CONC 34 g/dL (31-37); MEAN CORPUSCULAR VOLUME 94 fL (79-100); MONO # 0.9 x10^3/uL (0.0-1.1); MONO % 6 % (0-9); NEUT % 62 % (31-73); PLATELET COUNT 204 x10^3/uL (140-400); RED BLOOD COUNT 4.68 x10^6/uL (4.30-5.70); RED CELL DISTRIBUTION WIDTH 15.4 % (11.5-14.5); WHITE BLOOD COUNT 14.6 x10^3/uL (4.0-11.0)
[2021-08-12 09:24] LABS: ALBUMIN 3.3 g/dL (3.4-5.0); ALBUMIN/GLOBULIN RATIO 1.4 (1.0-1.7); CALCIUM 8.5 mg/dL (8.5-10.1); CREATININE 1.2 mg/dL (0.7-1.3); GFR 57.8; POTASSIUM 4.6 mmol/L (3.5-5.1); TOTAL BILIRUBIN 1.2 mg/dL (0.2-1.0); TOTAL PROTEIN 5.7 g/dL (6.4-8.2)
--- NOTE | 2021-08-12 10:20 | PDOC2 ---
SIDNEY GOMEZ [employer]RAY [employer] 08/12/21 1020: CARDIAC CONSULT DATE OF CONSULT DOS: DATE: 08/12/21 TIME: 10:15 REASON FOR CONSULT Reason for Consult 5 beat NSVT REFERRING PHYSICIAN Referring Physician Dr. Forrest SOURCE Source: Chart review, Patient HPI History of Present Illness This is an 85 yo male who present with epigastric chest pain. Has a history of tachy-shukri s/p Medtonic PPM. 5-beat NSVT noted on tele in ED, which prompted this consult. Also known history of PAC's, PVC's, atrial tach, and PSVT. On flecainide for rhythm maintenance. Follows with [facility]. Initial labs notable for significantly elevated lipase and elevated LFTs. CT of the abdomen/pelvis with evidence of pancreatitis. Troponin negative. PAST MEDICAL HISTORY Cardiovascular: HTN, hyperipidemia, Other (SSS, SVT, atrial tach) Heme/Onc: Other (CLL) Renal/: Prostate Ca. PAST SURGICAL HISTORY Past Surgical History: Cholecystectomy, Pacemaker, Colon Resection FAMILY HISTORY Family History: Diabetes, Hypertension SOCIAL HISTORY Smoke: Quit ALCOHOL: none Drugs: None Lives: Alone CURRENT MEDICATIONS Current Medications Current Medications Fentanyl Citrate (Fentanyl 2ml Vial) 100 mcg STK-MED ONCE .ROUTE ; Start 08/11/21 at 14:14; Stop 08/11/21 at 14:15; Status DC Ondansetron HCl (Zofran) 4 mg STK-MED ONCE .ROUTE ; Start 08/11/21 at 14:14; Stop 08/11/21 at 14:15; Status DC Aspirin (Aspirin Chewable) 324 mg 1X ONCE PO Last administered on 08/11/21at 14:26; Start 08/11/21 at 14:15; Stop 08/11/21 at 14:20; Status DC Nitroglycerin (Nitrostat) 0.4 mg PRN Q5MIN PRN SL CP RATING > 1/10 Last administered on 08/11/21at 14:23; Start 08/11/21 at 14:15; Stop 08/12/21 at 14:14 Fentanyl Citrate (Fentanyl 2ml Vial) 50 mcg 1X ONCE IVP Last administered on 08/11/21at 14:23; Start 08/11/21 at 14:15; Stop 08/11/21 at 14:20; Status DC Multi-Ingredient Mouthwash/Gargle (Gi Cocktail) 20 ml 1X ONCE PO Last administered on 08/11/21at 14:31; Start 08/11/21 at 14:30; Stop 08/11/21 at 14:40; Status DC Iohexol (Omnipaque 350 Mg/ml) 100 ml 1X ONCE IV Last administered on 08/11/21at 15:49; Start 08/11/21 at 14:45; Stop 08/11/21 at 14:46; Status DC Morphine Sulfate (Morphine 2mg Syringe) 2 mg 1X ONCE IV Last administered on 08/11/21at 15:44; Start 08/11/21 at 15:30; Stop 08/11/21 at 15:40; Status DC Sodium Chloride 1,000 ml @ 1,000 mls/hr 1X ONCE IV Last administered on 08/11/21at 18:19; Start 08/11/21 at 18:15; Stop 08/11/21 at 19:14; Status DC Levofloxacin/ Dextrose 150 ml @ 100 mls/hr 1X ONCE IV Last administered on 08/11/21at 18:19; Start 08/11/21 at 18:15; Stop 08/11/21 at 19:44; Status DC Morphine Sulfate (Morphine 4mg Syringe) 4 mg 1X ONCE IV Last administered on 08/11/21at 18:18; Start 08/11/21 at 18:15; Stop 08/11/21 at 18:16; Status DC Iohexol (Omnipaque 300 Mg/ml) 75 ml 1X ONCE IV Last administered on 08/11/21at 18:52; Start 08/11/21 at 18:45; Stop 08/11/21 at 18:47; Status DC Hydromorphone HCl (Dilaudid) 1 mg 1X ONCE IVP Last administered on 08/11/21at 19:16; Start 08/11/21 at 19:15; Stop 08/11/21 at 19:16; Status DC Hydromorphone HCl (Dilaudid) 1 mg 1X ONCE IVP Last administered on 08/11/21at 22:08; Start 08/11/21 at 21:45; Stop 08/11/21 at 21:48; Status DC Hydromorphone HCl (Dilaudid) 1 mg PRN Q4HRS PRN IV/SQ PAIN GREATER THAN 3/10 Last administered on 08/12/21at 07:03; Start 08/11/21 at 22:00; Stop 08/12/21 at 21:59 Ondansetron HCl (Zofran) 4 mg STK-MED ONCE .ROUTE ; Start 08/12/21 at 00:26; Stop 08/12/21 at 00:26; Status DC Ondansetron HCl (Zofran) 8 mg 1X ONCE IVP Last administered on 08/12/21at 02:09; Start 08/12/21 at 01:00; Stop 08/12/21 at 01:01; Status DC Ondansetron HCl (Zofran) 4 mg PRN Q6HRS PRN IVP NAUSEA Last administered on 08/12/21at 07:02; Start 08/12/21 at 07:00 Active Scripts Active Reported Lasix (Furosemide) 20 Mg Tablet 1 Tab PO PRN PRN 30 Days Flecainide Acetate 100 Mg Tablet 1 Tab PO BID Ambien (Zolpidem Tartrate) 5 Mg Tablet 5 Mg PO PRN QHS PRN ALLERGIES Allergies: Coded Allergies: azithromycin (Verified Allergy, Unknown, Rash, 11/11/20) ROS Review of Systems 14 point ROS conducted with pertinent positives noted above in hPI PHYSICAL EXAM General: Alert, Cooperative, No acute distress Lungs: Clear to auscultation, Other (diminished bases) Heart: Regular rate (frequent PAC's ) Abdomen: Soft, Other (tender) Extremities: No edema Skin: No breakdown Neuro: Normal speech, Sensation intact, Other (CAP[place] [place] BAND) Psych/Mental Status: Mood NL MUSCULOSKELETAL: Osteoarthritic changes both hands VITALS Vital Signs Vital Signs Date Time Temp Pulse Resp B/P (MAP) Pulse Ox O2 Delivery O2 Flow Rate FiO2 08/12/21 07:30 102 24 111/58 (75) 97 Room Air 08/12/21 00:45 98.2 LABS LABS Laboratory Tests Test 08/11/21 14:17 08/11/21 15:29 08/11/21 22:00 08/12/21 08:45 White Blood Count 15.3 x10^3/uL (4.0-11.0) 14.6 x10^3/uL (4.0-11.0) Red Blood Count 5.16 x10^6/uL (4.30-5.70) 4.68 x10^6/uL (4.30-5.70) Hemoglobin 16.5 g/dL (13.0-17.5) 15.0 g/dL (13.0-17.5) Hematocrit 48.4 % (39.0-53.0) 44.0 % (39.0-53.0) Mean Corpuscular Volume 94 fL (79-100) 94 fL (79-100) Mean Corpuscular Hemoglobin 32 pg (25-35) 32 pg (25-35) Mean Corpuscular Hemoglobin Concent 34 g/dL (31-37) 34 g/dL (31-37) Red Cell Distribution Width 15.0 % (11.5-14.5) 15.4 % (11.5-14.5) Platelet Count 220 x10^3/uL (140-400) 204 x10^3/uL (140-400) Neutrophils (%) (Auto) 44 % (31-73) 62 % (31-73) Lymphocytes (%) (Auto) 47 % (24-48) 32 % (24-48) Monocytes (%) (Auto) 8 % (0-9) 6 % (0-9) Eosinophils (%) (Auto) 1 % (0-3) 0 % (0-3) Basophils (%) (Auto) 1 % (0-3) 0 % (0-3) Neutrophils # (Auto) 6.7 x10^3uL (1.8-7.7) 9.0 x10^3uL (1.8-7.7) Lymphocytes # (Auto) 7.2 x10^3/uL (1.0-4.8) 4.6 x10^3/uL (1.0-4.8) Monocytes # (Auto) 1.2 x10^3/uL (0.0-1.1) 0.9 x10^3/uL (0.0-1.1) Eosinophils # (Auto) 0.1 x10^3/uL (0.0-0.7) 0.0 x10^3/uL (0.0-0.7) Basophils # (Auto) 0.1 x10^3/uL (0.0-0.2) 0.1 x10^3/uL (0.0-0.2) Segmented Neutrophils % 60 % (35-66) Band Neutrophils % 5 % (0-9) Lymphocytes % 31 % (24-48) Monocytes % 3 % (0-10) Eosinophils % 1 % (0-5) Platelet Estimate Adequate (ADEQUATE) Troponin I Quantitative < 0.017 ng/mL (0-0.055) Sodium Level 140 mmol/L (136-145) Potassium Level 4.3 mmol/L (3.5-5.1) Chloride Level 105 mmol/L (98-107) Carbon Dioxide Level 25 mmol/L (21-32) Anion Gap 10 (6-14) Blood Urea Nitrogen 24 mg/dL (8-26) Creatinine 1.4 mg/dL (0.7-1.3) Estimated GFR (Cockcroft-Gault) 48.4 BUN/Creatinine Ratio 17 (6-20) Glucose Level 192 mg/dL (70-99) Calcium Level 9.4 mg/dL (8.5-10.1) Total Bilirubin 1.8 mg/dL (0.2-1.0) Aspartate Amino Transf (AST/SGOT) 731 U/L (15-37) Alanine Aminotransferase (ALT/SGPT) 559 U/L (16-63) Alkaline Phosphatase 144 U/L (46-116) Total Protein 6.3 g/dL (6.4-8.2) Albumin 3.6 g/dL (3.4-5.0) Albumin/Globulin Ratio 1.3 (1.0-1.7) Lipase 68128 U/L (73-393) SARS-CoV-2 Antigen (Rapid) Negative (NEGATIVE) ECHOCARDIOGRAM Echocardiogram 11/19/20 - 2D + DOPPLER ECHO Interpretation Summary Normal left ventricular systolic function with an EF of 60-65%. No regional wall motion abnormalities. Diastolic parameters were indeterminate. The RV is not well visualized, limited views is probably mildly dilated with overall preserved function. Mitral annular calcification with nonspecific mitral valve thickening. The mitral function is overall preserved. The aortic valve is calcified, there is mild to moderate aortic stenosis, the peak velocity is 2.8 m/s, the peak gradient is 30 mmHg, the mean gradient 17 mmHg, the aortic valve velocity ratio is 0.35. There is trace AI. Peak PAP not able to be calculated due to poor TR envelope. The IVC is consistent with elevated central venous pressure. Greatest at the upper end of normal for age and body surface area. No pericardial effusion. The prior study was obtained on 02/16/2015. It demonstrated an EF of 60%, diastolic function was normal, RV size and function appeared normal, trace MR, trace TR, aortic valve sclerosis without stenosis, trace AI, aortic root was at the upper end of normal for age and body surface area, the peak pulmonary pressure was 24 mmHg, the IVC is consistent with a normal central venous pressure, there is no pericardial effusion. There has been progression of the aortic valve calcification since the prior study, there is now mild to moderate aortic valve stenosis. ASSESSMENT/PLAN Assessment/Plan 1. Epigastric chest pain; atypical. Trop negative 2. Elevated lipase; CT abdomen/pelvis with evidence of pancreatitis. as per IM 3. Leukocytosis 4 . Elevated LFTs 5. Arrhythmia; burst of 5-breat NSVT note on tele in ED. frequent PAC's also noted. Patient with known history of PAC's, PVC's, atrial tach, and PSVT. On flecainide for rhythm maintenance. Recent echo with preserved LV systolic function. Follows with [facility]. 6. Hypertension; controlled overall 7. Hyperlipidemia 8. SSS s/p PPM ([employer]); Recent device check with normal function. Frequent PAC's noted. burst of NSVT also noted. 9. CLL Recommendations Metoprolol IVP q6 hrs for rate control while NPO Resume flecainide for rhythm maintenance when able to take oral Keep K >4.0 and Mg > 2.0 Supportive care from a CV standpoint No further inpatient cardiac testing warranted at this time JULISSA SANTIAGO MD 08/13/21 1718: CARDIAC CONSULT ASSESSMENT/PLAN Assessment/Plan Patient seen and examined on 08/12/2021. I agree with our nurse practitioners assessment and plan. Acute on chronic respiratory failure with AE COPD. Continue on present medications. Echocardiogram. Chest pressure; atypical. initial trop negative. Cath 2018 without obstructive disease. Repeat troponin. Hypertension; controlled . Continue medical treatment. Hyperlipidemia. Check lipids. Recent COVID infection; negative this admission H/o tobaccoism, in remission. SIDNEY GOMEZ APRN Aug 12, 2021 10:20 JULISSA SANTIAGO MD Aug 13, 2021 17:18
[2021-08-12 11:53] VITALS: BP 122/77
[2021-08-12] MEDS ORDERED: METO-239 PO (14:49)
[2021-08-12] MEDS ORDERED: HYDR-2145 PO (14:49)
[2021-08-12 15:56] VITALS: BP 110/69
[2021-08-12] MEDS: IV RINGERS SOLUTION,LACTATED 1,000 ML IV SCH (16:31)
[2021-08-12] MEDS: METOPROLOL TARTRATE 5 MG/5 ML VIAL. IV SCH (18:12)
--- NOTE | 2021-08-12 18:55 | HP ---
DATE OF SERVICE: 08/12/2021 ADMIT DATE: 08/11/2021 HISTORY OF PRESENT ILLNESS: The patient is an 85-year-old male patient who presented to the Emergency Room with generalized chest pain that started on the morning of admission day. He rated his pain as about 8/10. According to the patient, it does not radiate, reported shortness of breath with chest pain. He apparently has a history of hypertension, coronary artery disease, bronchial asthma, chronic lymphatic leukemia, and pacemaker placement. He stated that he saw his academic guidance specialist at [facility] only 2 weeks ago and apparently has had cholecystectomy and colon resection. He denied any nausea or vomiting. Denied any diarrhea. He was extensively investigated in the Emergency Room and has had an EKG, which showed that he was in sinus rhythm with premature atrial contraction with a heart rate of 95, no ST segment elevation myocardial infarction. Has had a CT scan of the chest with intravenous contrast, which showed no convincing pulmonary embolism; however, evaluation of the distal pulmonary arteries is limited due to the patient's infiltrate and respiratory motion. Has multifocal mid and lower lung predominant interstitial infiltrates with partial left lower lobe consolidation. There are multiple superimposed subcentimeter nodular opacities, which is likely infectious in etiology. Short-term followup in 3 months' time is recommended to confirm resolution and exclude persistent underlying nodule. Has also mild mediastinal and hilar lymphadenopathy, likely reactive in etiology and attention at the time of followup is recommended. He has also peripancreatic fatty stranding. This is not completely included on the field of view. He also has simple-appearing cyst within the upper pole of the right kidney and coronary artery atherosclerosis, cardiomegaly, and calcification of the aortic valve. His lab work showed that he has markedly deranged liver enzymes with markedly elevated AST and ALT, disproportionately higher than serum bilirubin and alkaline phosphatase. His serum lipase was 34,900. He did have his first set of cardiac enzymes, ruled out myocardial infarction. The patient was continued on IV fluid, kept n.p.o. and also on pain medication, and was admitted for further evaluation and treatment. PAST MEDICAL HISTORY: Significant for coronary artery disease; generalized osteoarthritis; has bronchial asthma; hypertension; has colon cancer, status post partial colectomy; prostate cancer, status post radiation and surgery. He is known to have chronic lymphatic leukemia. PAST SURGICAL HISTORY: Significant for appendectomy, permanent pacemaker placement, bilateral cataract extraction. He has also eye surgery and cholecystectomy, colonoscopy and partial colectomy, and prostatectomy. ALLERGIES: HE IS ALLERGIC TO AZITHROMYCIN. MEDICATIONS: He apparently is on the following medications: He is on flecainide acetate 75 mg twice a day; metoprolol succinate 25 mg extended release, he takes half a tablet daily. He is on Ambien 5 mg at bedtime, furosemide 20 mg once a day, and hydrochlorothiazide 25 mg daily. FAMILY HISTORY: He has one brother who of brain tumor at age of 60. One sister, also diseased. The cause of is not clear. His father at age of 61 because of brain tumor and mother at age of 96. SOCIAL HISTORY: He is , has 1 son and 2 daughters. He never smoked. Does not drink alcohol or use recreational drugs. 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 REVIEW OF SYSTEMS: The patient has bilateral cataract extraction, but denied any glaucoma or macular degeneration. Has bilateral sensorineural deafness. Denied any nosebleed, stuffy nose, or postnasal drip. Denied any sore throat, sore tongue, toothache, hoarseness of voice, or difficulty swallowing. Denied any nausea, vomiting, diarrhea, or constipation. Denied any hematemesis, melena, or hematochezia. Denied any dysuria, frequency, or hematuria. He did complain of what seemed to be lower chest and upper epigastric pain, also some shortness of breath, but denied any orthopnea or paroxysmal nocturnal dyspnea. Denied any cough, phlegm, or hemoptysis. PHYSICAL EXAMINATION: GENERAL: On arrival to the Emergency Room, he was somewhat tachypneic, but there were no pallor, jaundice, cyanosis, or thyromegaly. No jugular venous distention. No limb edema. VITAL SIGNS: His heart rate was 94, blood pressure was 166/69, his temperature was 98.2, respiratory rate was 32, and oxygen saturation was 98% on room air. HEAD, EYES, EARS, NOSE, AND THROAT: Normocephalic, atraumatic. NECK: Supple. HEART: Showed normal first and second heart sounds. No gallop, rub, or murmur. CHEST: Shows central trachea. Equal bilateral chest expansion, air entry, vesicular breath sounds. No crepitation or rhonchi. ABDOMEN: Distended, tender, mostly in the epigastric area. There was no guarding or rigidity. No organomegaly. All hernial orifice intact. Bowel sounds normal. NEUROLOGIC: He was hard of hearing, but otherwise all his cranial nerves are intact. He moves extremities without difficulty. LABORATORY DATA: On admission showed a white cell count of 15,300, hemoglobin 16.5, hematocrit 48, MCV 94, and platelet count of 220,000 with normal manual differential. His chemistry showed a serum sodium 140, potassium 4.3, chloride 105, bicarbonate 25, anion gap of 10, BUN 24, creatinine 1.4. Estimated GFR was 48 mL per minute. His glucose 192. Calcium was 9.4. Total bilirubin, AST, ALT, alkaline phosphatase are all elevated. Total protein 6.3, albumin was 3.6. His serum lipase was 34,900. ASSESSMENT AND PLAN: In summary, this is an 85-year-old male patient who came with abdominal pain and lower chest pain, was diagnosed with acute pancreatitis, the cause of which is not clear. He is status post cholecystectomy. He does not drink alcohol. His lab work did not show any evidence of hypercalcemia. Plan is to keep him n.p.o., continue with IV fluid and IV pain medication as well as antiemetic. We will repeat his lab work again. He did have CT scan of the abdomen and pelvis, which basically did not show any evidence of biliary obstruction. I will check his fasting lipid profile to eliminate hypertriglyceridemia, but in his case, the most likely culprit is hydrochlorothiazide as a cause of his pancreatitis. NIRMAL DR: Esvin TID: [id number]
[2021-08-12 19:51] VITALS: BP 113/74
--- NOTE | 2021-08-12 23:14 | PN ---
DATE: 08/12/2021 SUBJECTIVE: The patient is sitting comfortably in his chair, in no apparent respiratory distress. He continued to complain of epigastric pain. He denied, however, any nausea or vomiting. PHYSICAL EXAMINATION: GENERAL: When I examined him this afternoon, he looked well and was clearly in no apparent respiratory distress. There is no pallor, jaundice, cyanosis, or thyromegaly. No jugular venous distention. No limb edema. VITAL SIGNS: His heart rate was 79, blood pressure is 110/69, temperature was 97.9, respiratory rate 20, and oxygen saturation was 95% on room air. HEAD, EYES, EARS, NOSE, AND THROAT: Normocephalic, atraumatic. NECK: Supple. HEART: Showed normal first and second heart sounds, no gallop or murmur. CHEST: Clear to auscultation, no crepitation or rhonchi. ABDOMEN: Nondistended. Tenderness mostly in the epigastric area. NEUROLOGIC: He was hard of hearing, but otherwise all his cranial nerves are intact. His intake over the last 24 hours and output were incompletely recorded. LABORATORY DATA: His white cell count is 14,600, hemoglobin 15, hematocrit 44, MCV 94 and platelet count of 204,000. Serum sodium was 141, potassium 4.6, chloride 107, bicarbonate 25, anion gap of 9, BUN 23, creatinine 1.2. Estimated GFR was 57 mL per minute. His glucose was 119, calcium was 8.5. Total bilirubin, AST, ALT, alkaline phosphatase are all elevated, although they are trending down. Total protein 5.7, albumin 3.3, and serum lipase was 3944. ASSESSMENT: 1. Acute pancreatitis, likely due to hydrochlorothiazide, improving chest pain, atypical. The patient is mostly complaining of epigastric pain. 2. Hypertension, well controlled, sick sinus syndrome, and chronic lymphatic leukemia. PLAN: We will keep the patient n.p.o. Continue with lactated Ringer at 75 mL together with pain medication and antiemetic. Repeat his lab work tomorrow and I will also check his fasting lipid profile tomorrow and if the pain improved and he is able to tolerate his food, he can be discharged home. BRENNA DR: Esvin TID: [id number]
[2021-08-12 23:56] VITALS: BP 128/75
[2021-08-13] MEDS: IV RINGERS SOLUTION,LACTATED 1,000 ML IV SCH (05:22)
[2021-08-13] MEDS: METOPROLOL TARTRATE 5 MG/5 ML VIAL. IV SCH ×3 (05:23→11:17)
[2021-08-13 05:32] VITALS: BP 147/78
[2021-08-13 06:13] LABS: BASO # 0.1 x10^3/uL (0.0-0.2); BASO % 1 % (0-3); EOS % 0 % (0-3); HEMATOCRIT 42.6 % (39.0-53.0); HEMOGLOBIN 14.5 g/dL (13.0-17.5); LYMPH # 5.3 x10^3/uL (1.0-4.8); LYMPH % 29 % (24-48); MEAN CORPUSCULAR HEMOGLOBIN 32 pg (25-35); MEAN CORPUSCULAR HGB CONC 34 g/dL (31-37); MEAN CORPUSCULAR VOLUME 95 fL (79-100); MONO # 1.6 x10^3/uL (0.0-1.1); MONO % 9 % (0-9); NEUT # 11.5 x10^3uL (1.8-7.7); NEUT % 62 % (31-73); PLATELET COUNT 181 x10^3/uL (140-400); RED CELL DISTRIBUTION WIDTH 15.2 % (11.5-14.5); WHITE BLOOD COUNT 18.6 x10^3/uL (4.0-11.0)
[2021-08-13 06:27] LABS: ALBUMIN 3.1 g/dL (3.4-5.0); ALBUMIN/GLOBULIN RATIO 1.1 (1.0-1.7); CALCIUM 8.5 mg/dL (8.5-10.1); CREATININE 1.2 mg/dL (0.7-1.3); GFR 57.8; POTASSIUM 4.2 mmol/L (3.5-5.1); TOTAL BILIRUBIN 1.7 mg/dL (0.2-1.0); TOTAL PROTEIN 5.8 g/dL (6.4-8.2)
[2021-08-13 09:59] VITALS: BP 151/88
[2021-08-13] MEDS ORDERED: IOHEXOL 300 MG/ML 75 ML VIAL. IV ONE (13:30)
--- NOTE | 2021-08-13 14:31 | RAD ---
EXAM: Abdomen and pelvis CT with intravenous contrast. HISTORY: Pancreatitis. TECHNIQUE: Computed tomographic images of the abdomen and pelvis were obtained following the administ ration of intravenous contrast.*One or more of the following individualized dose reduction techniques were utilized for this examination: 1. Automated exposure control. 2. Adjustment of the mA and/or kV according to patient size. 3. Use of iterative reconstruction technique. COMPARISON: 08/11/2021. FINDINGS: Evaluation of the lower thorax demonstrates bilateral mid and lower lung nodular and inters titial infiltrate with partial left infrahilar consolidation. The largest nodular infiltrate componen t measures 10 mm within the right middle lobe. There is cardiomegaly. There are cardiac pacemaker cynthia ds. There are prominent distal paraesophageal lymph nodes. There is no suspicious hepatic lesion. The gallbladder is absent. There is stable diffuse peripancrea tic stranding. No focal pancreatic lesion, pseudocyst or pseudoaneurysm is seen. There is wall thicke letha involving the proximal duodenum, likely reactive in etiology. There is a splenule adjacent to an otherwise unremarkable spleen. The adrenal glands are unremarkable. There is renal atrophy. There are simple renal cysts, the largest of which is seen on the right measu ring 6.4 cm. Follow-up is not routinely performed for simple cysts. There is no hydronephrosis. There is a 10 mm exophytic lesion within the lower pole the left kidney with attenuation greater than simp le fluid, likely due to a complicated cyst. There is no appendicitis. There is no bowel obstruction. There is contrast within the bladder due to a recent contrast-enhanced exam. There is aortic and aortic branch vessel atherosclerosis. There is e vidence of ventral abdominal wall mesh repair of a hernia. There is slight diastasis of the ventral a bdominal wall musculature the superior to the umbilicus and at the level of the umbilicus. There are clips within the pelvis. The prostate is absent. There are prominent periportal and retrope ritoneal lymph nodes. There is multilevel degenerative change throughout the spine. No suspicious oss eous lesion or acute osseous finding is seen. IMPRESSION: 1. Acute pancreatitis. This is not significantly changed compared to the prior exam. No pseudocyst is seen. 2. Stable enlarged distal paraesophageal, periportal and retroperitoneal lymph nodes, likely reactive in etiology 3. Bilateral mid and lower lung infiltrate superimposed on suspected chronic interstitial changes, st able in appearance. Follow-up to confirm resolution of the nodular component of the infiltrate is rec ommended to exclude a persistent lesion. 4. Multiple renal cysts, including a suspected complicated cyst with internal debris within the lower pole the left kidney measuring 10 mm. No suspicious renal lesion is seen. The superimposed on renal atrophy. Electronically signed by: Brandi Haq MD (08/13/2021 2:29 PM) [id number]
[2021-08-13 14:33] VITALS: BP 161/88
[2021-08-13] MEDS ORDERED: PIP/TAZO PER PHARMACY MC PRN (15:00)
[2021-08-13] MEDS: PIPERACILLIN/TAZOBACTAM 4.5 GM in IV NORMAL SALINE 50ML 50 ML IV SCH (18:02)
--- NOTE | 2021-08-13 18:42 | NUR ---
Nursing note PT in bed, frequently complaints and needs pain medication. Doctor said some pain medication can be given when its not up to three hours, on clear liquid diet. call light within reach, family requires information on how treatment is been done. Bed low, pain verbalizes no other needs.
--- NOTE | 2021-08-13 18:46 | PDOC ---
Progress Note. Date of Service: DOS: DATE: 08/13/21 TIME: 18:43 Subjective: Patient seen and examined. He is more comfortable today. Objective: Liver panel and lipase improving. Vital Signs/I&O: Vital Signs Date Time Temp Pulse Resp B/P (MAP) Pulse Ox O2 Delivery O2 Flow Rate FiO2 08/13/21 18:32 18 Room Air 08/13/21 14:33 97.0 68 161/88 (112) 95 I & O 08/12/21 08/12/21 08/13/21 15:00 23:00 07:00 Intake Total 30 ml 30 ml 0 ml Output Total 100 ml Balance 30 ml -70 ml 0 ml Labs: Laboratory Tests Test 08/13/21 05:45 White Blood Count 18.6 x10^3/uL (4.0-11.0) H Red Blood Count 4.50 x10^6/uL (4.30-5.70) Hemoglobin 14.5 g/dL (13.0-17.5) Hematocrit 42.6 % (39.0-53.0) Mean Corpuscular Volume 95 fL (79-100) Mean Corpuscular Hemoglobin 32 pg (25-35) Mean Corpuscular Hemoglobin Concent 34 g/dL (31-37) Red Cell Distribution Width 15.2 % (11.5-14.5) H Platelet Count 181 x10^3/uL (140-400) Neutrophils (%) (Auto) 62 % (31-73) Lymphocytes (%) (Auto) 29 % (24-48) Monocytes (%) (Auto) 9 % (0-9) Eosinophils (%) (Auto) 0 % (0-3) Basophils (%) (Auto) 1 % (0-3) Neutrophils # (Auto) 11.5 x10^3uL (1.8-7.7) H Lymphocytes # (Auto) 5.3 x10^3/uL (1.0-4.8) H Monocytes # (Auto) 1.6 x10^3/uL (0.0-1.1) H Eosinophils # (Auto) 0.0 x10^3/uL (0.0-0.7) Basophils # (Auto) 0.1 x10^3/uL (0.0-0.2) Sodium Level 140 mmol/L (136-145) Potassium Level 4.2 mmol/L (3.5-5.1) Chloride Level 106 mmol/L (98-107) Carbon Dioxide Level 25 mmol/L (21-32) Anion Gap 9 (6-14) Blood Urea Nitrogen 21 mg/dL (8-26) Creatinine 1.2 mg/dL (0.7-1.3) Estimated GFR (Cockcroft-Gault) 57.8 BUN/Creatinine Ratio 18 (6-20) Glucose Level 112 mg/dL (70-99) H Calcium Level 8.5 mg/dL (8.5-10.1) Total Bilirubin 1.7 mg/dL (0.2-1.0) H Aspartate Amino Transferase (AST) 100 U/L (15-37) H Alanine Aminotransferase (ALT) 267 U/L (16-63) H Alkaline Phosphatase 122 U/L (46-116) H Total Protein 5.8 g/dL (6.4-8.2) L Albumin 3.1 g/dL (3.4-5.0) L Albumin/Globulin Ratio 1.1 (1.0-1.7) Lipase 314 U/L (73-393) Physical Exam: Gen.: Alert, feeling better. HEENT: Normocephalic atraumatic, PERRLA EOMI, no scleral icterus, oral mucosa pink and moist Cardiovascular: Normal S1 and S2 no murmurs Pulmonary: Lungs are clear bilaterally with good air movement no respiratory distress Abdomen: Soft. Assessment: Epigastric chest pain; atypical. Trop negative. Improved today. Elevated lipase; CT abdomen/pelvis with evidence of pancreatitis. as per IM. Lab testing all improved today. Elevated LFTs. Also improving. Arrhythmia; burst of 5-breat NSVT note on tele in ED. frequent PAC's also noted. Patient with known history of PAC's, PVC's, atrial tach, and PSVT. On flecainide for rhythm maintenance. Recent echo with preserved LV systolic function. Follows with [facility]. Resume flecainide. Hypertension; controlled overall Hyperlipidemia SSS s/p PPM ([employer]); Recent device check with normal function. Frequent PAC's noted. burst of NSVT also noted. JULISSA SANTIAGO MD Aug 13, 2021 18:46
[2021-08-13 19:10] VITALS: BP 134/81
[2021-08-13] MEDS: ZOLPIDEM 5 MG TABLET. PO PRN (20:41)
[2021-08-13] MEDS: FLECAINIDE 50 MG TABLET. PO SCH (21:22)
[2021-08-14 00:41] VITALS: BP 143/78
[2021-08-14] MEDS: IV RINGERS SOLUTION,LACTATED 1,000 ML IV SCH ×2 (01:48→08:15)
[2021-08-14] MEDS: PIPERACILLIN/TAZOBACTAM 4.5 GM in IV NORMAL SALINE 50ML 50 ML IV SCH ×5 (01:48→23:42)
--- NOTE | 2021-08-14 02:39 | PN ---
DATE: 08/13/2021 SUBJECTIVE: The patient sitting at the edge of the bed, complaining of severe pain in the epigastric area. He denied any nausea, vomiting. He is actually constipated. His serum lipase has came down all the way to 314, which is well within normal range. His liver enzymes are steadily declining. They have not normalized yet. He is afebrile. However, his white cell count for some reason has risen to 18,600. PHYSICAL EXAMINATION: GENERAL: When I examined him, there was no pallor, jaundice, cyanosis or thyromegaly. No jugular venous distention. No lower limb edema. VITAL SIGNS: His heart rate was 78, blood pressure was 151/88, temperature was 98.2, respiratory rate was 18 and oxygen saturation was 94% on room air. HEAD, EYES, EARS, NOSE, AND THROAT: Showed normocephalic, atraumatic. NECK: Supple. HEART: Showed normal first and second heart sounds, no gallop, rub or murmur. CHEST: Clear to auscultation, no crepitation or rhonchi. ABDOMEN: Distended. Tenderness mostly in the epigastric area. There is no guarding or rigidity. No organomegaly. All hernial orifice intact. Bowel sounds normal. NEUROLOGIC: He was hard of hearing, but otherwise all his cranial nerves intact. His intake was 1500, no output was recorded. LABORATORY DATA: As of this morning, his white cell count was 18,600, hemoglobin 14, hematocrit 42, MCV 95 and platelet count of 181,000. His chemistry showed a serum sodium 140, potassium 4.2, chloride 106, bicarbonate 25, anion gap of 9, BUN 21, creatinine 1.2. Estimated GFR was 58 mL per minute. His glucose 112, calcium was 8.5. Total bilirubin is up to 1.7; however, AST, ALT, alkaline phosphatase are trending down. Total protein 5.8, albumin 3.1 and serum lipase was 314. ASSESSMENT: 1. Acute pancreatitis, likely due to hydrochlorothiazide. 2. Atypical chest pain, myocardial infarction was ruled out. 3. Pancreatitis, resolved. His serum lipase is down to 314. However, the patient is having more pain and his white cell count has risen concerning for development of some complication of acute pancreatitis including pseudocyst and or abscess. 4. Hypertension that is well controlled. 5. Sick sinus syndrome. 6. Chronic lymphatic leukemia. PLAN: My plan is to continue with pain management. Continue with n.p.o. status. Continue with IV metoprolol. I will repeat his CT scan of the abdomen and pelvis with IV contrast and decide on further management accordingly. SCARLETT DR: Esvin TID: [id number]
[2021-08-14 05:52] LABS: HEMATOCRIT 42.8 % (39.0-53.0); HEMOGLOBIN 14.6 g/dL (13.0-17.5); RED BLOOD COUNT 4.57 x10^6/uL (4.30-5.70); RED CELL DISTRIBUTION WIDTH 15.1 % (11.5-14.5); WHITE BLOOD COUNT 18.8 x10^3/uL (4.0-11.0)
[2021-08-14 06:17] LABS: ALBUMIN 2.9 g/dL (3.4-5.0); ALBUMIN/GLOBULIN RATIO 0.9 (1.0-1.7); CALCIUM 8.4 mg/dL (8.5-10.1); CREATININE 1.1 mg/dL (0.7-1.3); GFR 63.9; POTASSIUM 3.6 mmol/L (3.5-5.1); TOTAL BILIRUBIN 1.8 mg/dL (0.2-1.0)
[2021-08-14 06:27] VITALS: BP 173/93
[2021-08-14] MEDS: LACTOBACILLUS RHAMNOSUS GG 1 CAPSULE. PO SCH ×2 (08:10→19:52)
[2021-08-14] MEDS: METOPROLOL SUCC 24HR ER 25 MG TAB.ER.24H. PO SCH (08:11)
[2021-08-14] MEDS: FLECAINIDE 50 MG TABLET. PO SCH ×2 (08:12→19:52)
[2021-08-14 10:40] VITALS: BP 154/90
--- NOTE | 2021-08-14 13:56 | PDOC ---
DATE OF SERVICE: DOS: DATE: 08/14/21 TIME: 13:55 SUBJECTIVE: Patient seen and examined. OBJECTIVE: Problems: Problems Medical Problems: (1) Pancreatitis Status: Acute Vital Signs/I&O: Vital Signs Date Time Temp Pulse Resp B/P (MAP) Pulse Ox O2 Delivery O2 Flow Rate FiO2 08/14/21 10:40 97.4 74 18 154/90 (111) 95 08/14/21 08:15 Room Air I & O 08/13/21 08/13/21 08/14/21 15:00 23:00 07:00 Intake Total 60 ml 290 ml 1290 ml Balance 60 ml 290 ml 1290 ml Labs: Laboratory Tests Test 08/14/21 05:35 White Blood Count 18.8 x10^3/uL (4.0-11.0) H Red Blood Count 4.57 x10^6/uL (4.30-5.70) Hemoglobin 14.6 g/dL (13.0-17.5) Hematocrit 42.8 % (39.0-53.0) Mean Corpuscular Volume 94 fL (79-100) Mean Corpuscular Hemoglobin 32 pg (25-35) Mean Corpuscular Hemoglobin Concent 34 g/dL (31-37) Red Cell Distribution Width 15.1 % (11.5-14.5) H Platelet Count 185 x10^3/uL (140-400) Sodium Level 136 mmol/L (136-145) Potassium Level 3.6 mmol/L (3.5-5.1) Chloride Level 103 mmol/L (98-107) Carbon Dioxide Level 23 mmol/L (21-32) Anion Gap 10 (6-14) Blood Urea Nitrogen 19 mg/dL (8-26) Creatinine 1.1 mg/dL (0.7-1.3) Estimated GFR (Cockcroft-Gault) 63.9 BUN/Creatinine Ratio 17 (6-20) Glucose Level 130 mg/dL (70-99) H Calcium Level 8.4 mg/dL (8.5-10.1) L Total Bilirubin 1.8 mg/dL (0.2-1.0) H Aspartate Amino Transferase (AST) 40 U/L (15-37) H Alanine Aminotransferase (ALT) 164 U/L (16-63) H Alkaline Phosphatase 117 U/L (46-116) H Total Protein 6.0 g/dL (6.4-8.2) L Albumin 2.9 g/dL (3.4-5.0) L Albumin/Globulin Ratio 0.9 (1.0-1.7) L Lipase 78 U/L (73-393) ASSESSMENT: Epigastric pain; atypical. Trop negative. Improved today. Elevated lipase; CT abdomen/pelvis with evidence of pancreatitis. as per IM. Lab testing has been improving. Elevated LFTs. Also improving. Arrhythmia; burst of 5-breat NSVT note on tele in ED. frequent PAC's also noted. Patient with known history of PAC's, PVC's, atrial tach, and PSVT. On flecainide for rhythm maintenance. Recent echo with preserved LV systolic function. Follows with [facility]. Rhythm improved overnight. Hypertension; better control Hyperlipidemia SSS s/p PPM ([employer]); Recent device check with normal function. Frequent PAC's noted. burst of NSVT also noted. Justification of Admission: Justification of Admission: Justification of Admission Dx: Yes JULISSA SANTIAGO MD Aug 14, 2021 13:56
[2021-08-14 15:06] VITALS: BP 168/91
--- NOTE | 2021-08-14 16:53 | NUR ---
PT LIPASE DOWN TO 78. PT STILL REQUESTED PAIN MEDS TWICE TODAY. PT WAS ENCOURAGED TO TRY K-PAD FIRST BUT REFUSED. PT WAS SEEN BY PHYSICAL THERAPY TODAY AND SAT IN HIS CHAIR AND ON THE SIDE OF THE BED SOME OF THE DAY. PT TO CONTINUE ON IV ABX TX. PT WILL D/C HOME MONDAY.
--- NOTE | 2021-08-14 18:20 | PN ---
DATE: 08/14/2021 SUBJECTIVE: The patient is resting, slightly propped up in bed, in no apparent respiratory distress. On questioning him, he stated he continued to have mild pain, but has no further episode, no nausea, no vomiting. Denied any chills, rigors or fever. PHYSICAL EXAMINATION: GENERAL: When I examined him, he looked well and was clearly in no apparent respiratory distress, somewhat pale, but not jaundiced, cyanosed, no lymphadenopathy, no thyromegaly. No jugular venous distention. No lower limb edema. VITAL SIGNS: His heart rate was 74, blood pressure is 154/90, temperature was 97.4, respiratory rate was 18 and oxygen saturation was 95% on room air. HEAD, EYES, EARS, NOSE AND THROAT: Normocephalic, atraumatic. NECK: Supple. HEART: Showed normal first and second heart sounds, no gallop or murmur. CHEST: Shows central trachea, equally reduced expansion, reduced air entry, vesicular breath sounds, bilateral basal crepitation. I could not appreciate any rhonchi. ABDOMEN: Distended, soft, no tenderness, no guarding or rigidity. No organomegaly. All hernial orifices intact. Bowel sounds normal. NEUROLOGIC: He is awake, alert, somewhat hard of hearing, but otherwise all cranial nerves intact. He moves extremities without difficulty. His intake over the last 24 hours and output are incompletely recorded. LABORATORY DATA: His lab work this morning showed a white cell count still up at 18,800, hemoglobin 14.6, hematocrit 43, MCV 94 and platelet count of 185,000. His chemistry showed a serum sodium of 136, potassium 3.6, chloride 103, bicarbonate 23, anion gap of 10, BUN 19, creatinine 1.1. Estimated GFR was 64 mL per minute. His glucose was 130. Calcium was 8.4. Total bilirubin is 1.8. AST, ALT, alkaline phosphatase are elevated, but trending down. His total protein 6, albumin 2.9. Serum triglycerides were 91. Total cholesterol 222, LDL was 59, VLDL was 18, HDL was 45. Ratio for his serum lipase was 78. His coronavirus PCR was negative. ASSESSMENT: 1. Acute pancreatitis, likely due to hydrochlorothiazide. 2. Atypical chest pain, myocardial infarction was ruled out. 3. Hypertension, well controlled. 4. Sick sinus syndrome, status post permanent pacemaker. 5. Chronic lymphatic leukemia. 6. Probably community-acquired pneumonia superimposed on chronic pulmonary fibrosis. PLAN: My plan is to continue with IV antibiotic. I would advance diet as tolerated. Start physical and occupational therapy. Will hopefully discharge him home on Monday. JOSELINE/SEBLE DR: Esvin TID: [id number]
[2021-08-14 19:04] VITALS: BP 138/81
[2021-08-14 22:58] VITALS: BP 132/86
[2021-08-15 05:45] VITALS: BP 170/88
[2021-08-15] MEDS: PIPERACILLIN/TAZOBACTAM 4.5 GM in IV NORMAL SALINE 50ML 50 ML IV SCH ×3 (05:45→17:30)
--- NOTE | 2021-08-15 06:03 | NUR ---
Nursing note: C/o pain in abd approx midshift, resolved with fentanyl. Daughter Elizabeth called, updated on pt condition. Pt rested in bed through much of shift, no needs at this time.
[2021-08-15 06:40] LABS: BASO % 0 % (0-3); EOS # 0.1 x10^3/uL (0.0-0.7); EOS % 1 % (0-3); HEMATOCRIT 43.7 % (39.0-53.0); HEMOGLOBIN 14.3 g/dL (13.0-17.5); LYMPH # 4.6 x10^3/uL (1.0-4.8); LYMPH % 36 % (24-48); MEAN CORPUSCULAR HEMOGLOBIN 32 pg (25-35); MEAN CORPUSCULAR HGB CONC 33 g/dL (31-37); MEAN CORPUSCULAR VOLUME 97 fL (79-100); MONO # 0.8 x10^3/uL (0.0-1.1); MONO % 7 % (0-9); NEUT # 7.4 x10^3uL (1.8-7.7); NEUT % 57 % (31-73); PLATELET COUNT 127 x10^3/uL (140-400); RED BLOOD COUNT 4.49 x10^6/uL (4.30-5.70); RED CELL DISTRIBUTION WIDTH 15.2 % (11.5-14.5); WHITE BLOOD COUNT 12.9 x10^3/uL (4.0-11.0)
[2021-08-15 07:08] LABS: CALCIUM 8.1 mg/dL (8.5-10.1); CREATININE 1.1 mg/dL (0.7-1.3); GFR 63.9; POTASSIUM 3.4 mmol/L (3.5-5.1)
[2021-08-15] MEDS: METOPROLOL SUCC 24HR ER 25 MG TAB.ER.24H. PO SCH (07:50)
[2021-08-15] MEDS: LACTOBACILLUS RHAMNOSUS GG 1 CAPSULE. PO SCH ×2 (07:50→20:56)
[2021-08-15] MEDS: FLECAINIDE 50 MG TABLET. PO SCH ×2 (07:51→20:55)
[2021-08-15 10:33] VITALS: BP 128/54
[2021-08-15] MEDS: POTASSIUM CHLORIDE 20 MEQ TABLET.ER. PO SCH ×2 (13:07→20:55)
--- NOTE | 2021-08-15 14:04 | PN ---
DATE: 08/15/2021 SUBJECTIVE: The patient is resting, slightly propped up in bed, in no apparent respiratory distress. He is awake, alert. On questioning him, he denied any complaint, in particular denied any further episode of nausea, vomiting. Denied any abdominal pain. He is tolerating his diet very well. His white cell count is coming down nicely. He ambulates without assistance or assistive devices. PHYSICAL EXAMINATION: GENERAL: When I saw him this morning, he looked well. There is no pallor, jaundice, cyanosis or thyromegaly. No jugular venous distention. No limb edema. VITAL SIGNS: His heart rate was 75, blood pressure was 128/54, temperature was 98, respiratory rate was 18 and oxygen saturation was 93% on room air. HEAD, EYES, EARS, NOSE, AND THROAT: Normocephalic, atraumatic. NECK: Supple. HEART: Normal first and second heart sounds, no gallop, rub or murmur. CHEST: Showed central trachea, equal bilateral expansion, air entry, vesicular breath sounds with bilateral basal crepitation, more so on the left than right. I could not appreciate any rhonchi. ABDOMEN: Distended, soft, nontender. NEUROLOGIC: He is hard of hearing, but otherwise all cranial nerves are intact. He moves extremities without difficulty. He ambulates without assistance or assistive devices. His intake over the last 24 hours was 1600, no output was recorded. LABORATORY DATA: As of this morning, his white cell count is down to 12,900, hemoglobin 14, hematocrit 44, MCV 97 and platelet count of 127,000. His chemistry showed a serum sodium 133, potassium 3.4, chloride 102, bicarbonate 22, anion gap of 9, BUN 15, creatinine 1.1. Estimated GFR was 64 mL per minute. His glucose 112 and calcium was 8.1. Most recent serum lipase was 78. ASSESSMENT: 1. Acute pancreatitis, resolving. 2. Atypical chest pain, myocardial infarction was ruled out. 3. Hypertension, seems to be well controlled. 4. Sick sinus syndrome, status post permanent pacemaker. 5. Chronic lymphatic leukemia. 6. Probably community-acquired pneumonia, superimposed on chronic pulmonary fibrosis. PLAN: To continue with IV antibiotic. Continue with all his other medications. He has hypokalemia and hopefully he can be discharged home tomorrow with home health on oral Augmentin. ANGELICA DR: Esvin TID: [id number]
[2021-08-15 15:03] VITALS: BP 155/88
--- NOTE | 2021-08-15 15:37 | NUR ---
PLAN IS FOR PT TO STILL D/C TOMORROW. PT STILL RECEIVING IV ABX TX. PT DID NOT REQUIRE PAIN MEDS TODAY. PT WAS UP AD SAMUEL IN ROOM. PT RESTED IN BED MOST OF THE DAY.
--- NOTE | 2021-08-15 18:40 | PDOC ---
DATE OF SERVICE: DOS: DATE: 08/15/21 TIME: 18:39 SUBJECTIVE: Patient seen and examined OBJECTIVE: Problems: Problems Medical Problems: (1) Pancreatitis Status: Acute Vital Signs/I&O: Vital Signs Date Time Temp Pulse Resp B/P (MAP) Pulse Ox O2 Delivery O2 Flow Rate FiO2 08/15/21 15:03 98.0 79 18 155/88 (110) 95 08/15/21 08:00 Room Air I & O 08/14/21 08/14/21 08/15/21 15:00 23:00 07:00 Intake Total 960 ml 490 ml 50 ml Balance 960 ml 490 ml 50 ml Labs: Laboratory Tests Test 08/15/21 06:13 White Blood Count 12.9 x10^3/uL (4.0-11.0) H Red Blood Count 4.49 x10^6/uL (4.30-5.70) Hemoglobin 14.3 g/dL (13.0-17.5) Hematocrit 43.7 % (39.0-53.0) Mean Corpuscular Volume 97 fL (79-100) Mean Corpuscular Hemoglobin 32 pg (25-35) Mean Corpuscular Hemoglobin Concent 33 g/dL (31-37) Red Cell Distribution Width 15.2 % (11.5-14.5) H Platelet Count 127 x10^3/uL (140-400) L Neutrophils (%) (Auto) 57 % (31-73) Lymphocytes (%) (Auto) 36 % (24-48) Monocytes (%) (Auto) 7 % (0-9) Eosinophils (%) (Auto) 1 % (0-3) Basophils (%) (Auto) 0 % (0-3) Neutrophils # (Auto) 7.4 x10^3uL (1.8-7.7) Lymphocytes # (Auto) 4.6 x10^3/uL (1.0-4.8) Monocytes # (Auto) 0.8 x10^3/uL (0.0-1.1) Eosinophils # (Auto) 0.1 x10^3/uL (0.0-0.7) Basophils # (Auto) 0.0 x10^3/uL (0.0-0.2) Sodium Level 133 mmol/L (136-145) L Potassium Level 3.4 mmol/L (3.5-5.1) L Chloride Level 102 mmol/L (98-107) Carbon Dioxide Level 22 mmol/L (21-32) Anion Gap 9 (6-14) Blood Urea Nitrogen 15 mg/dL (8-26) Creatinine 1.1 mg/dL (0.7-1.3) Estimated GFR (Cockcroft-Gault) 63.9 Glucose Level 112 mg/dL (70-99) H Calcium Level 8.1 mg/dL (8.5-10.1) L ASSESSMENT: Epigastric pain; atypical. Trop negative. Improved today. Elevated lipase; CT abdomen/pelvis with evidence of pancreatitis. as per IM. Lab testing has been improving. Elevated LFTs. Also improving. Arrhythmia; burst of 5-breat NSVT note on tele in ED. frequent PAC's also noted. Patient with known history of PAC's, PVC's, atrial tach, and PSVT. On flecainide for rhythm maintenance. Recent echo with preserved LV systolic function. Follows with [facility]. Rhythm improved overnight. Hypertension; better control Hyperlipidemia SSS s/p PPM ([employer]); Recent device check with normal function. Frequent PAC's noted. burst of NSVT also noted. Justification of Admission: Justification of Admission: Justification of Admission Dx: Yes JULISSA SANTIAGO MD Aug 15, 2021 18:40
[2021-08-15 19:59] VITALS: BP 167/75
[2021-08-15] MEDS: ZOLPIDEM 5 MG TABLET. PO PRN (20:55)
[2021-08-16] MEDS: PIPERACILLIN/TAZOBACTAM 4.5 GM in IV NORMAL SALINE 50ML 50 ML IV SCH ×3 (02:06→06:01)
[2021-08-16 05:51] VITALS: BP 130/64
[2021-08-16 07:06] LABS: HEMATOCRIT 36.8 % (39.0-53.0); HEMOGLOBIN 12.8 g/dL (13.0-17.5); RED BLOOD COUNT 3.95 x10^6/uL (4.30-5.70); RED CELL DISTRIBUTION WIDTH 14.6 % (11.5-14.5); WHITE BLOOD COUNT 10.1 x10^3/uL (4.0-11.0)
[2021-08-16 07:17] LABS: CALCIUM 7.9 mg/dL (8.5-10.1); CREATININE 1.1 mg/dL (0.7-1.3); GFR 63.9; POTASSIUM 3.4 mmol/L (3.5-5.1)
[2021-08-16] MEDS: LACTOBACILLUS RHAMNOSUS GG 1 CAPSULE. PO SCH (08:16)
[2021-08-16] MEDS: POTASSIUM CHLORIDE 20 MEQ TABLET.ER. PO SCH (08:16)
[2021-08-16 08:17] VITALS: BP 130/64
[2021-08-16] MEDS: METOPROLOL SUCC 24HR ER 25 MG TAB.ER.24H. PO SCH (08:17)
[2021-08-16] MEDS: FLECAINIDE 50 MG TABLET. PO SCH (08:17)
--- NOTE | 2021-08-16 08:26 | PDOC ---
CARDIO Progress Notes Date & Time Date of Service DATE: 08/16/21 TIME: 08:22 Time of Evaluation 08:22 Subjective Notes No chest pain, shortness of breath, palpitations. Abdominal pain improved Vitals Vitals Vital Signs Date Time Temp Pulse Resp B/P (MAP) Pulse Ox O2 Delivery O2 Flow Rate FiO2 08/16/21 08:17 75 130/64 08/16/21 05:51 97.7 18 91 Room Air Weight Weight [ ] Input and Output I.O. Intake and Output 08/16/21 07:00 Intake Total 950 ml Balance 950 ml Intake Oral 900 ml IV Total 50 ml # Voids 2 Laboratory Labs Laboratory Tests Test 08/15/21 06:13 08/16/21 06:55 White Blood Count 12.9 x10^3/uL (4.0-11.0) 10.1 x10^3/uL (4.0-11.0) Red Blood Count 4.49 x10^6/uL (4.30-5.70) 3.95 x10^6/uL (4.30-5.70) Hemoglobin 14.3 g/dL (13.0-17.5) 12.8 g/dL (13.0-17.5) Hematocrit 43.7 % (39.0-53.0) 36.8 % (39.0-53.0) Mean Corpuscular Volume 97 fL (79-100) 93 fL (79-100) Mean Corpuscular Hemoglobin 32 pg (25-35) 32 pg (25-35) Mean Corpuscular Hemoglobin Concent 33 g/dL (31-37) 35 g/dL (31-37) Red Cell Distribution Width 15.2 % (11.5-14.5) 14.6 % (11.5-14.5) Platelet Count 127 x10^3/uL (140-400) 167 x10^3/uL (140-400) Neutrophils (%) (Auto) 57 % (31-73) Lymphocytes (%) (Auto) 36 % (24-48) Monocytes (%) (Auto) 7 % (0-9) Eosinophils (%) (Auto) 1 % (0-3) Basophils (%) (Auto) 0 % (0-3) Neutrophils # (Auto) 7.4 x10^3uL (1.8-7.7) Lymphocytes # (Auto) 4.6 x10^3/uL (1.0-4.8) Monocytes # (Auto) 0.8 x10^3/uL (0.0-1.1) Eosinophils # (Auto) 0.1 x10^3/uL (0.0-0.7) Basophils # (Auto) 0.0 x10^3/uL (0.0-0.2) Sodium Level 133 mmol/L (136-145) 134 mmol/L (136-145) Potassium Level 3.4 mmol/L (3.5-5.1) 3.4 mmol/L (3.5-5.1) Chloride Level 102 mmol/L (98-107) 101 mmol/L (98-107) Carbon Dioxide Level 22 mmol/L (21-32) 24 mmol/L (21-32) Anion Gap 9 (6-14) 9 (6-14) Blood Urea Nitrogen 15 mg/dL (8-26) 12 mg/dL (8-26) Creatinine 1.1 mg/dL (0.7-1.3) 1.1 mg/dL (0.7-1.3) Estimated GFR (Cockcroft-Gault) 63.9 63.9 Glucose Level 112 mg/dL (70-99) 119 mg/dL (70-99) Calcium Level 8.1 mg/dL (8.5-10.1) 7.9 mg/dL (8.5-10.1) Physical Exams HEENT: Neck Supple W Full Motion Chest: Symmetric Lungs: Clear to Auscultation Heart: RRR (PAC's, ) Abdomen: Soft N/T, Other (obese) Extremities: No Edema Neurology: alert, follow commands Assessment Assessment 1. Epigastric chest pain; atypical. Trop negative 2. Elevated lipase, acute pancreatitis 3. Elevated LFTs 4 . Leukocytosis 5. Arrhythmia; burst of 5-breat NSVT note on tele in ED, none further. Known history of PAC's, PVC's, atrial tach, and PSVT. On flecainide for rhythm maintenance. Recent echo with preserved LV systolic function. Follows with [facility]. 6. Hypertension; controlled overall 7. Hyperlipidemia 8. SSS s/p PPM ([employer]); Recent device check with normal function. Frequent PAC's noted. burst of NSVT also noted. 9. CLL Recommendations Continue metoprolol, flecainide for rate control, arrhythmia suppression Supportive care from a CV standpoint No further inpatient cardiac testing warranted at this time Follow up with [facility] upon discharge SIDNEY GOMEZ APRN Aug 16, 2021 08:26
[2021-08-16] MEDS ORDERED: AMOX1TAB61 PO (10:40)
--- NOTE | 2021-08-16 10:42 | DISCH ---
HOME HEALTH DISCHARGE/MEDS DISCHARGE INFORMATION: Discharge Date: Aug 16, 2021 Final Diagnosis: Problems Medical Problems: (1) Pancreatitis Status: Acute Condition on Discharge: Stable CODE STATUS: Code Status: DNR/DNI HOME HEALTH: Face to Face: I certify this patient is under my care and that I, or a nurse practitioner or physician's addictions counselor assistant working with me, had a face to face encounter that meets the physician face to face encounter requirements with this patient on 08/16/2021 Medical Condition(s): Pneumonia Senior Care For: Assess Cardiopulm Status, Assess & Educate Safety Physical Therapy For: Evalulation/Treatment Occupational Therapy For: Evaluation/Treatment POST DISCHARGE ORDERS: Activity Instructions for Disc: Resume previous activity DIET AFTER DISCHARGE: Cardiac CERTIFICATION STATEMENT: Certification Statement: Based on the above finding, I certify that this patient is confined to the home and needs intermittent retirement care, physical therapy and/or speech therapy, or continues to need occupational therapy.~ This patient is under my care, and I have initiated the establishment of the plan of care.~ This patient will be followed by myself or a community physician who will periodically review the plan of care. DISCHARGE MEDICATIONS: Home Meds Active Scripts Amoxicillin/Potassium Clav (AUGMENTIN 875-125 TABLET) 1 Each Tablet, 1 TAB PO BID for cap for 7 Days, #14 TAB 0 Refills Prov:BILL GRAHAM MD 08/16/21 Reported Medications Flecainide Acetate (FLECAINIDE ACETATE) 100 Mg Tablet, 75 MG PO BID for arrythmia, TAB 08/12/21 Metoprolol Succinate (METOPROLOL SUCCINATE ( XL )) 25 Mg Tab.er.24h, 0.5 TAB PO DAILY for htn, #30 TAB 5 Refills 08/12/21 Furosemide (LASIX) 20 Mg Tablet, 1 TAB PO QMWF PRN for weight change for 30 Days, #30 TAB 0 Refills 08/12/21 Zolpidem Tartrate (AMBIEN) 5 Mg Tablet, 5 MG PO PRN QHS PRN for INSOMNIA, TAB 0 Refills 08/12/21 Discontinued Reported Medications Hydrochlorothiazide (HYDROCHLOROTHIAZIDE TABLET ) 25 Mg Tablet, 25 MG PO DAILY for DIURETIC, TAB 0 Refills 08/12/21 BILL GRAHAM MD Aug 16, 2021 10:42
--- NOTE | 2021-08-16 11:12 | DS ---
DATE OF DISCHARGE: 08/16/2021 HOSPITAL COURSE: The patient is an 85-year-old male patient who was originally admitted with severe epigastric abdomen and lower chest pain. He was extensively investigated in the Emergency Room and was seen in consultation by the Cardiology team. He was diagnosed with acute pancreatitis. In fact, his initial serum lipase was almost 35,000. He also had bilateral lower lobe infiltrate, more so on the left than right, superimposed on chronic pulmonary fibrosis. He did very well. His serum lipase came nicely down to 78 from 35,000, although his white cell count continued to rise, so I switched antibiotics from levofloxacin to Zosyn and he did very well, has been afebrile. His white cell count came down steadily from 18,000-10,000 this morning. He was evaluated by physical and occupational therapy. He continued to have some debility and weakness and therefore, a decision was made to discharge him home with home health to continue on oral Augmentin to finish the course of treatment. I did recommend that he should discontinue his hydrochlorothiazide as the most likely reason for his acute pancreatitis. PHYSICAL EXAMINATION: GENERAL: When I saw him this morning, he looked well and was clearly in no apparent respiratory distress. There was no pallor, jaundice, cyanosis or thyromegaly. No jugular venous distention. No lower limb edema. VITAL SIGNS: Her heart rate was 75, blood pressure is 130/64, temperature was 97.7, respiratory rate was 18 and oxygen saturation was 91% on room air. HEAD, EYES, EARS, NOSE, AND THROAT: Normocephalic, atraumatic. NECK: Supple. HEART: Normal first and second heart sounds, no gallop or murmur. CHEST: Clear to auscultation. No crepitation or rhonchi. ABDOMEN: Distended, soft, nontender. NEUROLOGIC: He was awake, alert, responding appropriately. All cranial nerves intact. He moves extremities without difficulty. He ambulates without assistance or assistive devices. His intake over the last 24 hours was 1500, no output was recorded. LABORATORY DATA: His lab work this morning showed a white cell count of 10,000, hemoglobin 13, hematocrit 39, MCV 93, and platelet count of 167,000. Serum sodium was 134, potassium 3.4, chloride 101, bicarbonate 24, anion gap of 9, BUN 12, creatinine 1.1. Estimated GFR was 63 mL per minute. His glucose 119, calcium was 7.9, magnesium 2. DISCHARGE MEDICATIONS: He was discharged home with home health to continue on the following medications: Amoxicillin/clavulanic acid 875/125 one tablet twice a day with food for 7 more days, flecainide 75 mg twice a day, furosemide 20 mg every Monday, Monday, Monday, metoprolol succinate 12.5 mg daily, and Ambien 5 mg at bedtime. I discontinued his hydrochlorothiazide as the most likely reason or cause of his acute pancreatitis. FINAL DISCHARGE DIAGNOSES: 1. Acute pancreatitis, resolved. 2. Atypical chest pain, myocardial infarction is ruled out. 3. Hypertension, seems to be well controlled. 4. Sick sinus syndrome. He has a permanent pacemaker. 5. Chronic lymphatic leukemia, stable. 6. Community-acquired pneumonia superimposed on chronic pulmonary fibrosis, responding very well to antibiotic. He was discharged home with home health to continue on Augmentin twice a day for 7 days. JOSELINE/SEBLE DR: Esvin TID: [id number]
--- NOTE | 2021-08-16 12:04 | NUR ---
PT SON BROUGHT CLOTHES FOR HIM TO CHANGE INTO. PT SON PICKED HIM UP. PT HAS DISCHARGE PAPERWORK AND BELONGINGS. PT WAS CONCERNED ABOUT A RASH ON HIS NECK RIGHT BEFORE LEAVING. PT ADVISED TO FOLLOW UP WITH HIS PCP. PT WHEELED TO THE FRONT BY STAFF. Addendum: 08/16/21 at 1207 by VALENCIA WATSON RN PT REFUSED HOME HEALTH CARE.
== END 2021-08-16 12:06 | disposition home health service (06) | DRG 177 ==
LOC: ER 13:56 → 1 SOUTH 18:37 → ER 08-12 11:40
PROVIDERS: ADMIT Internal Medicine; ATTEND Internal Medicine
PROC: 4B02XSZ Measurement of Cardiac Pacemaker, External Approach (ICD-10-PCS; principal; 2021-08-11)
DX: J15.6 Pneumonia due to other Gram-negative bacteria (principal); K85.90 Acute pancreatitis without necrosis or infection, unspecified; J96.20 Acute and chronic respiratory failure, unspecified whether with hypoxia or hypercapnia; C91.10 Chronic lymphocytic leukemia of B-cell type not having achieved remission; I47.2 Ventricular tachycardia; J44.0 Chronic obstructive pulmonary disease with (acute) lower respiratory infection; J15.9 Unspecified bacterial pneumonia; Z20.822 Contact with and (suspected) exposure to COVID-19; E78.5 Hyperlipidemia, unspecified; I10 Essential (primary) hypertension; I25.10 Atherosclerotic heart disease of native coronary artery without angina pectoris; I35.8 Other nonrheumatic aortic valve disorders; I49.1 Atrial premature depolarization; I49.5 Sick sinus syndrome; J84.10 Pulmonary fibrosis, unspecified; K59.00 Constipation, unspecified; R79.89 Other specified abnormal findings of blood chemistry; E87.6 Hypokalemia; F41.9 Anxiety disorder, unspecified; R53.81 Other malaise; M15.9 Polyosteoarthritis, unspecified; Z82.49 Family history of ischemic heart disease and other diseases of the circulatory system; Z83.3 Family history of diabetes mellitus; Z85.038 Personal history of other malignant neoplasm of large intestine; Z85.46 Personal history of malignant neoplasm of prostate; Z86.16 Personal history of COVID-19; Z90.49 Acquired absence of other specified parts of digestive tract; Z92.3 Personal history of irradiation; Z95.0 Presence of cardiac pacemaker; Z98.41 Cataract extraction status, right eye; Z98.42 Cataract extraction status, left eye
CPT/HCPCS: 36415; 71275; 74177; 80048; 80053; 80061; 83690; 83735; 84484; 85007; 85025; 85027; 87426; 93005; 96365; 96366; 96375; 96376; J1170; J1956; J2270; J2405; J2543; J3010; J3490; J7120; Q9967; U0003; 97110; 99285-25; J7030